=== PATIENT | female | born 1955 | race Caucasian/White ===

== ENCOUNTER 2017-12-17 11:31 | Emergency (ER) | payer MEDICARE ==
--- NOTE | 2017-12-17 14:14 | ULT ---
LEFT LOWER EXTREMITY VENOUS DOPPLER WITH SPECTRAL ANALYSIS AND COLOR FLOW EVALUATION: Date: 12-17-17 History: Left lower extremity redness and pain. Symptoms have been present for one month. FINDINGS: Grayscale, color flow, doppler evaluation and spectral analysis of the left lower extremity venous st ructures is performed with 2D imaging. The left lower extremity common femoral, superficial femoral, popliteal, posterior tibial, most proximal greater saphenous and profunda femoral veins are imaged. There is normal lumen compressibility, flow, and augmentation in the visualized deep venous structure s of the left lower extremity. There is an enlarged left inguinal lymph node which measures 3.1 cm x 0.8 cm x 2.2 cm. IMPRESSION: 1. No evidence of a DVT involving the visualized deep venous structures left lower extremity. 2. Minimal subcutaneous edema at the level of the distal left lower extremity. 3. Nonspecific enlarged left inguinal lymph node. This could be reactive in origin. POS: [facility]
== END 2017-12-17 14:43 | disposition home or self-care (01) ==
LOC: ERS 11:31
DX: I73.9 Peripheral vascular disease, unspecified (principal); G43.909 Migraine, unspecified, not intractable, without status migrainosus; I25.10 Atherosclerotic heart disease of native coronary artery without angina pectoris; E11.9 Type 2 diabetes mellitus without complications; Z87.891 Personal history of nicotine dependence; Z79.899 Other long term (current) drug therapy; Z79.4 Long term (current) use of insulin

== ENCOUNTER 2017-12-29 08:22 | Outpatient (CLI) | payer MEDICARE ==
[2017-12-29] MEDS ORDERED: Iopamidol 370 76% 100 ML VIAL ONE (12:21)
--- NOTE | 2017-12-29 13:48 | CT ---
CTA ABDOMEN WITH IV CONTRAST AND 3D POSTPROCESSING CTA PELVIS WITH IV CONTRAST AND 3D POSTPROCESSING CTA BILATERAL LOWER EXTREMITIES WITH RUNOFF AND 3D POSTPROCESSING: HISTORY: Coronary atherosclerosis, bilateral lower leg pain. FINDINGS: Atherosclerotic vascular calcifications are seen in the abdomen, pelvis, and bilateral lower extremit ies. No abdominal aortic aneurysm is seen. There is good flow in the celiac axis, SMA, and ERIN. No stenosis is seen at the origins of the SMA and the celiac axis. There is mild stenosis of the origi ns of the renal arteries on either side. There is severe stenosis in the left internal iliac and moderate stenosis in the right internal iliac arteries. There is good flow in the common and external iliac arteries. Mild stenosis is seen at t he origins of the superficial femoral arteries on either side. There is occlusion of the right dista l superficial femoral artery in the proximal popliteal artery with reconstitution of flow in the mid- distal right popliteal artery. There is good flow in the deep femoral arteries on either side. Ther e is high-grade short segmental stenosis in the left distal superficial femoral artery and severe mariaelena nosis in the left proximal popliteal artery. There is absence of flow in the right posterior vertebral artery. There is severe atherosclerotic di sease of the right anterior tibial artery with some flow noted in the distal portion close to the ank le. The right peroneal artery appears patent to the ankle. The left peroneal artery is occluded. Flow is demonstrated in the left posterior tibial and anterior tibial arteries. The flow in the anterior tibial and posterior tibial arteries stops in the distal leg above the level of the ankle. There are mild dependent changes in the lung bases. No calcified gallstones are seen. No free air, free fluid, or lymphadenopathy is seen in the abdomen or pelvis. There are enlarged inguinal lymph n odes measuring up to 2.5 cm on the left and 1.7 cm on the right. There are postop changes of hystere ctomy and lower back surgery. There are small cysts in the left kidney. IMPRESSION: Extensive atherosclerotic arterial vascular disease with occlusion in the distal right superior mesen teric artery and proximal popliteal artery and long segment occlusion of the right posterior tibial a nd left peroneal arteries. POS: [facility]
== END 2017-12-29 08:23 | disposition home or self-care (01) ==
LOC: CT 08:22
PROVIDERS: ATTEND Thoracic Surgery (Cardiothoracic Vascular Surgery)
DX: I73.9 Peripheral vascular disease, unspecified (principal); I25.10 Atherosclerotic heart disease of native coronary artery without angina pectoris; I70.201 Unspecified atherosclerosis of native arteries of extremities, right leg; K55.1 Chronic vascular disorders of intestine
CPT/HCPCS: 75635; 82565

== ENCOUNTER 2018-01-12 06:14 | Day surgery (SDC) | payer MEDICARE, MEDICAID ==
[2018-01-09 11:23] VITALS: BMI 29.4
[2018-01-12] MEDS ORDERED: Lidocaine 1% (PF) 30 ML VIAL ONE (06:41)
[2018-01-12 06:49] LABS: #Basophils 0.1 thou/uL (0.0-0.2); #Eosinphils 0.6 thou/uL (0.0-0.7); #Lymphocytes 1.8 thou/uL (1.20-3.40); #Monocytes 0.6 thou/uL (0.11-0.59); #Neutrophils 4.5 thou/uL (1.40-6.50); %Basophils 0.8 % (0.0-1.0); %Eosinophils 7.8 % (0.0-10.0); %Lymphocytes 24.5 % (21.0-51.0); %Monocytes 7.7 % (0.0-10.0); %Neutrophils 59.3 % (42.0-75.0); Hemoglobin 10.7 g/dL (12.0-16.0); Mean Corpuscular HGB CONC 32.2 g/dL (32.0-36.0); Mean Corpuscular Volume 86.7 fL (78.0-98.0); Mean Platelet Volume 6.8 fL (7.4-10.4); Platelet Count 357 thou/uL (130-400); RBC Distribution Width 12.4 % (11.5-14.5); Red Blood Cell (RBC) Count 3.81 mill/uL (4.20-5.40); White Blood Cell (WBC) Count 7.5 thou/uL (4.8-10.8)
[2018-01-12 07:08] LABS: Anion Gap 12 mmol/L (10-20); BUN (Urea Nitrogen) 9 mg/dL (9.8-20.1); Calc. Creatinine Clearance 93 mL/min (70-130); Calcium 9.6 mg/dL (7.8-10.44); Carbon Dioxide 26 mmol/L (23-31); Chloride 107 mmol/L (98-107); Estimated GFR-MDRD 69; Glucose 78 mg/dL (80-115); Potassium 3.7 mmol/L (3.5-5.1); Sodium 141 mmol/L (136-145)
[2018-01-12] MEDS ORDERED: Fentanyl 100 MCG/2 ML VIAL ONE (07:22)
[2018-01-12] MEDS ORDERED: Midazolam HCl 2 mg/2 ml Vial ONE (07:22)
--- NOTE | 2018-01-12 08:41 | OP ---
DATE OF PROCEDURE: 01/12/2018 PREOPERATIVE DIAGNOSES: Peripheral vascular disease. POSTOPERATIVE DIAGNOSIS: Peripheral vascular disease. PROCEDURES: 1. Ultrasound guided right common femoral artery access. 2. Abdominal aortogram. 3. Right external iliac artery angiogram. 4. Left external iliac artery, common femoral, superficial femoral, popliteal artery angiograms with left leg runoff. SURGEON: James Jaramillo M.D. ANESTHESIA: 1% lidocaine for local, 1 mg Versed//25 mcg fentanyl IV sedation which just made her more talkative. TOTAL CONTRAST: 23 mL. TOTAL FLUORO TIME: 4.2 minutes. FINDINGS: The aortoiliac and common femoral systems were patent bilaterally. On the right superficial femoral artery was patent to its distal aspect where it is occluded with a tapered endpoint. The popliteal artery reconstitutes after approximately 5 cm with runoff into the foot. On the left common femoral, profunda femoris, superficial femoral, and popliteal arteries were all widely patent. Anterior tibial artery is widely patent down to the ankle. There is a stenosis of the tibioperoneal trunk with a patent posterior tibial artery which plays out at the mid calf. Peroneal artery is occluded. PROCEDURE Using US guidance, the right groin was anesthetized and access obtained to the common femoral artery. A 5 fr sheath was placed. Contra catheter was placed into the abdominal aorta. Hand injected aortotram was performed. Contra was guided over the aortic bifurcation into the left external iliac. Hand injedted angiogram was performed chasing contrast from groin to foot using digitgal angiography. The catheter was then guided into the SFA, and Popliteal arteries where hand injected angios were perfomed illuminating the tibial system and popliteal respectively. Catheter was removed. Hand injection was performed throught the sheath and contrast chased from groin to foot on the right. Proglide was deployed with good hemostasis ASSESSMENT AND PLAN: Non-clinically significant left leg peripheral vascular disease. The right leg has an occluded superficial femoral artery/popliteal artery with reconstitution and runoff via tibials. This is potentially amenable to percutaneous management at a separate setting. [facility]
[2018-01-12] MEDS ORDERED: Iopamidol 370 76% 50 ML VIAL FS ONE (10:32)
== END 2018-01-12 10:42 | disposition home or self-care (01) ==
LOC: CCL 06:14
PROVIDERS: ATTEND Thoracic Surgery (Cardiothoracic Vascular Surgery)
PROC: B41D1ZZ Fluoroscopy of Aorta and Bilateral Lower Extremity Arteries using Low Osmolar Contrast (ICD-10-PCS; principal; 2018-01-12)
DX: E11.51 Type 2 diabetes mellitus with diabetic peripheral angiopathy without gangrene (principal); I70.201 Unspecified atherosclerosis of native arteries of extremities, right leg; M79.604 Pain in right leg; K21.9 Gastro-esophageal reflux disease without esophagitis; F32.9 Major depressive disorder, single episode, unspecified; I87.2 Venous insufficiency (chronic) (peripheral); E78.2 Mixed hyperlipidemia; I10 Essential (primary) hypertension; Z88.0 Allergy status to penicillin; Z88.1 Allergy status to other antibiotic agents; Z88.2 Allergy status to sulfonamides; Z88.5 Allergy status to narcotic agent; Z88.8 Allergy status to other drugs, medicaments and biological substances; Z91.040 Latex allergy status; Z95.1 Presence of aortocoronary bypass graft; Z79.02 Long term (current) use of antithrombotics/antiplatelets; Z79.4 Long term (current) use of insulin; Z79.899 Other long term (current) drug therapy
CPT/HCPCS: 36246; 36247; 75630; 76942; 80048; 85025; C1760; C1769 ×3; C1887; 36415; 99152; J1644; J2001; J2250; J3010

== ENCOUNTER 2018-01-27 07:54 | Day surgery (SDC) | payer MEDICARE, MEDICAID ==
[2018-01-26 18:07] VITALS: BMI 29.7
[2018-01-27] MEDS ORDERED: Lidocaine 1% (PF) 30 ML VIAL ONE (09:34)
[2018-01-27] MEDS ORDERED: Fentanyl 100 MCG/2 ML VIAL ONE (09:36)
[2018-01-27] MEDS ORDERED: Midazolam HCl 2 mg/2 ml Vial ONE (09:36)
[2018-01-27] MEDS ORDERED: Heparin 10,000 UNITS/1 ML VIAL ONE (10:30)
[2018-01-27] MEDS ORDERED: Iopamidol 370 76% 50 ML VIAL FS ONE (10:40)
[2018-01-27] MEDS ORDERED: Ondansetron HCl/PF 4 MG/2 ML Vial ONE (11:04)
[2018-01-27] MEDS ORDERED: Ketorolac Tromethamine 30 MG/ML VIAL ONE (11:36)
--- NOTE | 2018-01-27 12:06 | OP ---
DATE OF PROCEDURE: 01/27/2018 PREOPERATIVE DIAGNOSIS: Peripheral vascular disease. POSTOPERATIVE DIAGNOSIS: Peripheral vascular disease. PROCEDURES: 1. Ultrasound guided left common femoral artery access. 2. Right external iliac artery angiogram. 3. Right common femoral artery angiogram. 4. Right superficial femoral artery angiogram. 5. Right popliteal artery angiogram. 6. Right distal superficial femoral artery LEAD MECH[employer]IC with a 5 x 100 Lutonix balloon taken to 6 mmHg and he ld for 3 minutes. 7. ProGlide closure. SURGEON: James Jaramillo M.D. ANESTHESIA: 1 mg Versed/50 mcg fentanyl for sedation. TOTAL CONTRAST: 60 mL. TOTAL FLUOROSCOPY TIME: 12.1 minutes. PROCEDURE IN DETAIL: After consent was obtained, the patient was brought to landscape and yardwork laborer, placed in supi ne position on the landscape and yardwork laborer table. Appropriate monitoring was placed. IV sedation was given. Left groin was anesthetized using ultrasound guidance with 1% lidocaine. Percutaneous access to the left common femoral artery was obtained using a micropuncture set. The micropuncture sheath was exchanged for a 5-Dominican sheath over a UltiZenson guidewire. Contra catheter was then used to cross the aortic b ifurcation. Contra catheter was positioned in the external iliac artery. Digital angiography was us ed to dwight contrast from the groin down towards the knee. The occluded superficial femoral artery w as noted. The patient was given 5000 units of heparin. A Magic Torque guidewire was then passed in the superficial femoral artery. A 5-Dominican sheath was ex changed for a 5-Dominican destination sheath which was positioned in the right common femoral artery. A n angled glide catheter and angled Glidewire were used to access the area of occlusion. The Glidewir e was able to cross the occluded area into the distal popliteal artery. I could not get the glide ca theter to dwight the Glidewire. A Quick-Cross catheter also would not dwight the Glidewire. A 3 x 100 [place] balloon was then used to angioplasty the proximal cap. Once this was done, the balloon was removed and a Quick-Cross catheter passed down over the wire into the popliteal artery. Guidewire wa s removed and hand injected arteriogram performed confirming intraluminal location with the tip of th e catheter in the popliteal artery. Magic Torque guidewire was then placed down into the peroneal ar enrique. A Quick-Cross catheter was removed. A 5 x 100 Lutonix drug-eluting balloon was selected and p ositioned across the full length of the area of occlusion. Balloon was inflated to 6 mmHg for 3 emily nancy. Balloon was then deflated and removed. Hand injected arteriogram performed through the sheath showing an excellent result with great straight line flow through the occlusion of the popliteal neeta ry. A sheath was brought back over the aortic bifurcation over a Magic Torque guidewire. Magic Torq ue guidewire was removed. A UltiZenson guidewire placed. Sheath was removed and ProGlide deployed in t he left groin with great hemostasis. The patient was transferred to the recovery area and will be ke pt for 2 hours and discharged to home.
== END 2018-01-27 14:00 | disposition home or self-care (01) ==
LOC: CCL 07:54
PROVIDERS: ATTEND Thoracic Surgery (Cardiothoracic Vascular Surgery)
PROC: 047M3Z1 Dilation of Right Popliteal Artery using Drug-Coated Balloon, Percutaneous Approach (ICD-10-PCS; principal; 2018-01-27)
DX: E11.51 Type 2 diabetes mellitus with diabetic peripheral angiopathy without gangrene (principal); I70.201 Unspecified atherosclerosis of native arteries of extremities, right leg; K21.9 Gastro-esophageal reflux disease without esophagitis; F32.9 Major depressive disorder, single episode, unspecified; I25.10 Atherosclerotic heart disease of native coronary artery without angina pectoris; E78.2 Mixed hyperlipidemia; I10 Essential (primary) hypertension; L40.9 Psoriasis, unspecified; Z79.02 Long term (current) use of antithrombotics/antiplatelets; Z79.4 Long term (current) use of insulin; Z79.82 Long term (current) use of aspirin; Z79.899 Other long term (current) drug therapy; Z91.19 Patient's noncompliance with other medical treatment and regimen; Z88.0 Allergy status to penicillin; Z88.2 Allergy status to sulfonamides; Z88.5 Allergy status to narcotic agent; Z88.8 Allergy status to other drugs, medicaments and biological substances; Z91.048 Other nonmedicinal substance allergy status; Z95.1 Presence of aortocoronary bypass graft; Z98.1 Arthrodesis status; Z98.890 Other specified postprocedural states
CPT/HCPCS: 37224; 76942; 82962; 85347; C1725; C1760; C1769 ×2; C1887; 36416; 99152; 99153; J1644; J1885; J2001; J2250; J2405; J3010

== ENCOUNTER 2018-03-03 17:17 | Emergency (ER) | payer MEDICARE, MEDICAID ==
[2018-03-03 18:24] LABS: #Basophils 0.1 thou/uL (0.0-0.2); #Eosinphils 0.1 thou/uL (0.0-0.7); #Lymphocytes 1.8 thou/uL (1.20-3.40); #Monocytes 0.6 thou/uL (0.11-0.59); #Neutrophils 7.3 thou/uL (1.40-6.50); %Eosinophils 1.3 % (0.0-10.0); %Lymphocytes 18.2 % (21.0-51.0); %Monocytes 5.7 % (0.0-10.0); %Neutrophils 73.8 % (42.0-75.0); Hemoglobin 10.9 g/dL (12.0-16.0); Mean Corpuscular Hemoglobin 28.1 pg (27.0-31.0); Mean Corpuscular Volume 84.9 fL (78.0-98.0); Mean Platelet Volume 6.7 fL (7.4-10.4); Platelet Count 389 thou/uL (130-400); RBC Distribution Width 13.1 % (11.5-14.5); White Blood Cell (WBC) Count 9.9 thou/uL (4.8-10.8)
[2018-03-03 18:33] LABS: PTT 30.5 SEC (22.9-36.1); Prothrombin Time 12.7 SEC (12.0-14.7)
[2018-03-03 18:46] LABS: ALT (SGPT) 37 U/L (8-55); AST (SGOT) 32 U/L (5-34); Alkaline Phosphatase 87 U/L (40-150); Anion Gap 13 mmol/L (10-20); BUN (Urea Nitrogen) 6 mg/dL (9.8-20.1); Bilirubin, Total 0.3 mg/dL (0.2-1.2); Calc. Creatinine Clearance 0 mL/min (70-130); Calcium 9.4 mg/dL (7.8-10.44); Carbon Dioxide 25 mmol/L (23-31); Chloride 108 mmol/L (98-107); Estimated GFR-MDRD 70; Globulin 3.2 g/dL (2.4-3.5); Glucose 120 mg/dL (80-115); Potassium 3.5 mmol/L (3.5-5.1); Protein, Total 7.2 g/dL (6.0-8.3); Sodium 142 mmol/L (136-145)
[2018-03-03] MEDS ORDERED: Morphine 4 MG/ML VIAL ONE (20:19)
[2018-03-03] MEDS ORDERED: Ondansetron PF 4 MG/2 ML Vial ONE (20:31)
--- NOTE | 2018-03-03 20:53 | ULT ---
RIGHT LOWER EXTREMITY VENOUS DUPLEX EXAM: 03/03/18 HISTORY: Right lower extremity pain and edema. Real time color doppler evaluation of the right lower extremity was performed from the groin to calf. This includes evaluation of common femoral, superficial and profunda femoral, saphenous, popliteal a nd posterior tibial vein. This shows a patent deep venous system. There is normal compressibility an d augmentation. There is no evidence of DVT. Moderate soft tissue edema changes are noted. Arterial c alcifications are also incidentally seen. IMPRESSION: No evidence of DVT of the right lower extremity. POS: [facility]
== END 2018-03-03 20:36 | disposition home or self-care (01) ==
LOC: ERS 17:17
DX: M79.662 Pain in left lower leg (principal); G43.909 Migraine, unspecified, not intractable, without status migrainosus; I25.10 Atherosclerotic heart disease of native coronary artery without angina pectoris; E11.9 Type 2 diabetes mellitus without complications; F17.290 Nicotine dependence, other tobacco product, uncomplicated; Z79.899 Other long term (current) drug therapy; Z79.4 Long term (current) use of insulin
CPT/HCPCS: 36415; 80053; 85025; 85610; 85730; 86850; 86900; 86901; 96374; 96375; J2270; J2405

== ENCOUNTER 2018-04-20 16:07 | Emergency (ER) | payer MEDICARE, MEDICAID ==
[2018-04-20] MEDS ORDERED: Sodium Chloride For Inhalation 0.9% 3 ML NEB ONE (16:40)
--- NOTE | 2018-04-20 17:02 | RAD ---
CHEST 2 VIEWS: Date: 04/20/18 HISTORY: Cough and fever. COMPARISON: 07/25/11. FINDINGS: Cardiac silhouette and pulmonary vasculature are unremarkable. Mediastinum is midline with postoperat ruthann changes. There is no confluent air space consolidation, pneumothorax, or pleural fluid evident. IMPRESSION: No active cardiopulmonary abnormalities are demonstrated. POS: [facility]
== END 2018-04-20 17:37 | disposition home or self-care (01) ==
LOC: SCSER 16:07
DX: J20.9 Acute bronchitis, unspecified (principal); J06.9 Acute upper respiratory infection, unspecified; G43.909 Migraine, unspecified, not intractable, without status migrainosus; I25.10 Atherosclerotic heart disease of native coronary artery without angina pectoris; E11.9 Type 2 diabetes mellitus without complications; F17.290 Nicotine dependence, other tobacco product, uncomplicated
CPT/HCPCS: 71046; 87804; 94640; J7620

== ENCOUNTER 2018-04-28 20:25 | Emergency (ER) | payer MEDICARE, MEDICAID | END 2018-04-28 21:40 | disposition home or self-care (01) | LOC: SCSER 20:25 | DX: S61.211A Laceration without foreign body of left index finger without damage to nail, initial encounter (principal); I25.10 Atherosclerotic heart disease of native coronary artery without angina pectoris; G43.909 Migraine, unspecified, not intractable, without status migrainosus; F17.290 Nicotine dependence, other tobacco product, uncomplicated; W26.8XXA Contact with other sharp object(s), not elsewhere classified, initial encounter | CPT/HCPCS: 12001 ==

== ENCOUNTER 2018-05-02 11:15 | Emergency (ER) | payer MEDICARE, MEDICAID ==
[2018-05-02] MEDS ORDERED: Bacitracin Zinc 1 Packet ONE (11:31)
== END 2018-05-02 11:35 | disposition home or self-care (01) ==
LOC: SCSER 11:15
DX: T81.33XA Disruption of traumatic injury wound repair, initial encounter (principal); G43.909 Migraine, unspecified, not intractable, without status migrainosus; I25.10 Atherosclerotic heart disease of native coronary artery without angina pectoris; E11.9 Type 2 diabetes mellitus without complications; F17.290 Nicotine dependence, other tobacco product, uncomplicated
CPT/HCPCS: 99282

== ENCOUNTER 2018-06-03 10:05 | Outpatient (CLI) | payer MEDICARE, MEDICAID ==
[~2018-06-03 10:05] MED LIST: Gadobenate Dimeglumine 529 MG/1 ML (20ML VIAL) ONE
--- NOTE | 2018-06-03 11:27 | RAD ---
LUMBAR SPINE SERIES FOUR VIEWS INCLUDING FLEXION AND EXTENSION: FINDINGS: The vertebral bodies maintain normal height. Disc implants are seen at the L4-5 and L5-S1 levels with posterior lateral fusion and laminectomy change. There is no abnormal motion seen in either the flex ion or extension views. Disc narrowing is seen at L1-2 and L3-4. Vascular calcifications are present. IMPRESSION: Post-operative changes of the spine. POS: [facility]
--- NOTE | 2018-06-03 13:03 | MRI ---
MRI LUMBAR SPINE WITH AND WITHOUT CONTRAST: HISTORY: Back pain x1 year, recent worsening. Previous lumbar surgery. COMPARISON: None. TECHNIQUE: MRI lumbar spine is performed with and without intravenous Gadolinium administration. Multisequentia l, multiplanar imaging is performed. FINDINGS: There is appropriate T1 marrow signal intensity of the lumbar vertebrae. Lumbar spine vertebral body height is maintained. There is no fracture. There is posterior fusion bone graft material from L4 through S1. There are disk prostheses at L4-L5 and at L5-S1. Appropriate signal intensity of the visualized solid organs. Appropriate signal intensity of the par aspinal muscles. Incidental cyst in the left kidney. On the post contrast images, there is no abnormal enhancement with regard to the vertebral bodies. T here is no abnormal enhancement with regard to the cauda equina and conus medullaris. No abnormal en hancement within the thecal sac. The conus medullaris terminates at the T12-L1 disk space level. T12-L1: Adequate disk hydration. No significant central canal stenosis. The foramina are patent. L1-L2: Adequate disk hydration. No significant central canal stenosis. The foramina are patent. L2-L3: Adequate disk hydration. No significant central canal stenosis. The foramina are patent. L3-L4: Desiccation with mild loss of disk space height. Generalized disk bulge, ligamentum flavum t hickening, and facet hypertrophy result in moderate central canal stenosis. The right neural foramen is patent. Mild left foraminal narrowing. L4-L5: Disk prosthesis. Posterior decompression and laminectomy defect. No significant central can al stenosis or neural foraminal narrowing. L5-S1: Laminectomy defect. Posterior bone graft material. Disk prosthesis. No significant central canal stenosis. The neural foramina are patent bilaterally. IMPRESSION: Post surgical changes, as described above. Moderate central canal stenosis at L3-L4. POS: [facility]
== END 2018-06-03 10:06 | disposition home or self-care (01) ==
LOC: SCSMRI 10:05
PROVIDERS: ATTEND Neurological Surgery
DX: M48.062 Spinal stenosis, lumbar region with neurogenic claudication (principal); Z98.890 Other specified postprocedural states
CPT/HCPCS: 72120; 72158; 82565; A9577

== ENCOUNTER 2018-06-20 11:24 | Emergency (ER) | payer MEDICARE ==
--- NOTE | 2018-06-20 12:32 | CT ---
BRAIN CT WITHOUT IV CONTRAST: Date: 06/20/18 HISTORY: Posterior neck pain following an injury from trauma. COMPARISON: 04/09/12. FINDINGS: No focal mass or midline shift. No intra or extra-axial hemorrhage. Sinuses and mastoids are clear. IMPRESSION: No mass or bleed, or other acute process. POS: [facility]
--- NOTE | 2018-06-20 12:36 | CT ---
CT CERVICAL SPINE WITHOUT CONTRAST: Date: 06/20/18 Multiple axial tomograms obtained through the cervical spine with multiplanar reconstruction. INDICATION: Neck pain. Trauma. FINDINGS: Cervical vertebra maintain normal height and alignment. There are mild degenerative changes noted. Th e disc spaces are preserved with mild loss of disc space noted at C6-7. Anterior osteophytes are note d at C4-5, C5-6, and C6-7. Posterior spondylosis is prominent at C6-7. There is no evidence of acute fracture. Uncinate hypertrophy on the right produces right foraminal en croachment at C4-5. Uncinate hypertrophy also results in right foraminal stenosis at C6-7. IMPRESSION: No acute fracture. Degenerative changes as described. POS: [facility]
== END 2018-06-20 12:45 | disposition home or self-care (01) ==
LOC: SCSER 11:24
DX: M54.2 Cervicalgia (principal); G43.909 Migraine, unspecified, not intractable, without status migrainosus; I25.10 Atherosclerotic heart disease of native coronary artery without angina pectoris; E11.9 Type 2 diabetes mellitus without complications; F17.290 Nicotine dependence, other tobacco product, uncomplicated
CPT/HCPCS: 70450; 72125

== ENCOUNTER 2018-08-05 15:24 | Outpatient (CLI) | payer MEDICARE ==
--- NOTE | 2018-08-05 15:50 | RAD ---
Exam: Lumbar spine 2 views: HISTORY: Lumbar stenosis with out neurogenic claudication prior surgery, fall, right leg numbness COMPARISON: 06/03/2018 FINDINGS: Recent laminectomy changes at L2-L3 with right sided pedicle screw placement. No change in alignment from prior study. Postsurgical changes at L4-L5 and L5-S1. IMPRESSION: Recent postsurgical changes at L2-L3.
== END 2018-08-05 15:25 | disposition home or self-care (01) ==
LOC: TBSIIMAG 15:24
PROVIDERS: ATTEND Neurological Surgery
DX: M48.061 Spinal stenosis, lumbar region without neurogenic claudication (principal); Z98.890 Other specified postprocedural states
CPT/HCPCS: 72100

== ENCOUNTER 2018-08-11 15:40 | Outpatient (CLI) | payer MEDICARE ==
--- NOTE | 2018-08-11 15:58 | RAD ---
XR Lumbar Spine 2 Or 3 View HISTORY: Follow-up back surgery COMPARISON: 08/05/2018 study FINDINGS: Extensive postoperative changes of the spine are again noted. Laminectomy changes extending from L3 to S1. Right unilateral pedicle screws at L3-4 posterior lateral fusion changes again noted.. Disc implants at the L4-5 and L5-S1 levels. IMPRESSION: Stable postop change.
== END 2018-08-11 15:41 | disposition home or self-care (01) ==
LOC: TBSIIMAG 15:40
PROVIDERS: ATTEND Neurological Surgery
DX: M48.061 Spinal stenosis, lumbar region without neurogenic claudication (principal); Z98.890 Other specified postprocedural states
CPT/HCPCS: 72100

== ENCOUNTER 2018-09-22 15:28 | Outpatient (CLI) | payer MEDICARE ==
--- NOTE | 2018-09-22 15:45 | RAD ---
Exam: 2 views lumbar spine HISTORY: Previous lumbar surgery. COMPARISON: 08/11/2018 FINDINGS: Redemonstration of a unilateral right-sided transpedicular screw at L3 and L4. Disc implant at L4-L5 and L5-S1. Stable laminectomy defect at L3, L4, L5 and S1. Bone graft material is noted. Stable loss of disc space height and osteophyte formation at L3-L4. Stable osteophyte formation at L1 -L2. IMPRESSION: Uncomplicated lumbar fusion.
== END 2018-09-22 15:29 | disposition home or self-care (01) ==
LOC: TBSIIMAG 15:28
PROVIDERS: ATTEND Neurological Surgery
DX: M51.36 Other intervertebral disc degeneration, lumbar region (principal); Z98.1 Arthrodesis status
CPT/HCPCS: 72100

== ENCOUNTER 2018-11-13 14:56 | Outpatient (CLI) | payer MEDICARE ==
--- NOTE | 2018-11-13 17:06 | RAD ---
2 VIEWS LUMBOSACRAL SPINE: Date: 11/13/18 COMPARISON: 09/22/18. HISTORY: Low back pain which extends down the right leg. FINDINGS: 2 view of the lumbosacral spine show the patient to be status post posterior fusion of L3 through S1. No perihardware lucency is seen. Laminectomies have also been performed at L4 and L5. The vertebral bodies demonstrate normal alignment without subluxation. The intervertebral disc is narrowed at L1-2 with surrounding moderate osteophytes. No change has occurred compared to the prior exam. IMPRESSION: Stable postsurgical and degenerative changes of the lumbar spine. POS: [facility]
== END 2018-11-13 14:57 | disposition home or self-care (01) ==
LOC: TBSIIMAG 14:56
PROVIDERS: ATTEND Neurological Surgery
DX: M48.062 Spinal stenosis, lumbar region with neurogenic claudication (principal); M47.816 Spondylosis without myelopathy or radiculopathy, lumbar region; Z98.890 Other specified postprocedural states
CPT/HCPCS: 72100

== ENCOUNTER 2018-12-04 17:39 | Emergency (ER) | payer MEDICARE ==
[2018-12-04 18:36] LABS: Bilirubin Negative (Negative); Blood, Urine Negative (Negative); Glucose, Urine (Dipstick) 250 mg/dL (Negative); Leukocyte Moderate (Negative); Nitrite Negative (Negative); Protein, Urine (Dipstick) Negative (Neg-Trace); Urobilinogen 0.2 mg/dL (Less than 2)
[2018-12-04 18:37] LABS: Clarity Slightly Cloudy (Clear)
[2018-12-04 18:40] LABS: Bacteria/HPF None Seen HPF (None Seen); RBC/HPF 0-3 HPF (0-3); Renal Epithelial 0-3 HPF (None Seen)
[2018-12-04 18:41] LABS: #Basophils 0.1 thou/uL (0.0-0.2); #Eosinphils 0.4 thou/uL (0.0-0.7); #Lymphocytes 2.2 thou/uL (1.20-3.40); #Monocytes 0.5 thou/uL (0.11-0.59); #Neutrophils 5.9 thou/uL (1.40-6.50); %Basophils 1.5 % (0.0-1.0); %Eosinophils 4.2 % (0.0-10.0); %Lymphocytes 23.9 % (21.0-51.0); %Neutrophils 65.3 % (42.0-75.0); Hemoglobin 13.1 g/dL (12.0-16.0); Mean Corpuscular HGB CONC 34.3 g/dL (32.0-36.0); Mean Corpuscular Hemoglobin 28.7 pg (27.0-31.0); Mean Corpuscular Volume 83.7 fL (78.0-98.0); Mean Platelet Volume 6.6 fL (7.4-10.4); Platelet Count 313 thou/uL (130-400); RBC Distribution Width 13.5 % (11.5-14.5); Red Blood Cell (RBC) Count 4.57 mill/uL (4.20-5.40)
[2018-12-04 18:52] LABS: ALT (SGPT) 35 U/L (8-55); AST (SGOT) 23 U/L (5-34); Albumin 4.2 g/dL (3.4-4.8); Alkaline Phosphatase 107 U/L (40-150); Anion Gap 17 mmol/L (10-20); BUN (Urea Nitrogen) 17 mg/dL (9.8-20.1); Bilirubin, Total 0.3 mg/dL (0.2-1.2); Calc. Creatinine Clearance 0 mL/min (70-130); Calcium 9.7 mg/dL (7.8-10.44); Carbon Dioxide 25 mmol/L (23-31); Chloride 100 mmol/L (98-107); Estimated GFR-MDRD 39; Glucose 375 mg/dL (80-115); Potassium 3.6 mmol/L (3.5-5.1); Protein, Total 7.2 g/dL (6.0-8.3); Sodium 138 mmol/L (136-145)
--- NOTE | 2018-12-04 19:32 | CT ---
BRAIN CT WITHOUT IV CONTRAST: 12/04/18 HISTORY: Injury from a fall two weeks ago. COMPARISON: 06/20/18. FINDINGS: No focal mass or midline shift. No intra or extra-axial hemorrhage. There is a somewhat nodular appea ring area of minimal increased density in the left CP ankle which is somewhat more well defined than on the prior study. I cannot exclude the possibility of this representing a small mass such as a meni ngioma. This could well just be artifact. IMPRESSION: No mass, bleed or other significant acute intracranial process. 0.8 cm diameter focal area of slightl y nodular increased attenuation density in the left CP angle. This could be artifact although this co uld represent a small CP angle tumor such as meningioma. Consider nonemergent follow-up MRI with and without contrast. POS: [facility]
--- NOTE | 2018-12-04 19:48 | RAD ---
EXAM: CHEST ONE VIEW PORTABLE: 12/04/18 HISTORY: Injury from a fall. COMPARISON: 11/01/15. FINDINGS: Postop midline sternotomy. Heart size is normal. The lungs are clear. IMPRESSION: No significant acute intrathoracic disease. POS: [facility]
--- NOTE | 2018-12-04 19:51 | CT ---
EXAM: CERVICAL SPINE CT SCAN WITHOUT IV CONTRAST: 12/04/18 HISTORY: Injury from a fall. COMPARISON: 06/20/18. FINDINGS: Disc osteophytosis changes are noted at multiple levels most marked at C6-C7. There are some ossifica tion changes within the ligamentum flavum bilaterally at multiple levels. No evidence for acute fract ure or dislocation. IMPRESSION: Cervical spondylosis without acute fracture or dislocation. POS: [facility]
[2018-12-04] MEDS ORDERED: Acetaminophen 500 MG TAB ONE (20:40)
--- NOTE | 2018-12-04 21:04 | CT ---
CT LUMBAR SPINE WITH CORONAL AND SAGITTAL REFORMATIONS: 12/04/18 HISTORY: Fall. Left leg pain. FINDINGS/IMPRESSION: Postop changes are seen in the lower lumbar spine. There are right sided pedicle screws at L3 and L4 levels and intradiscal prosthesis at L4-5 and L5-S1 levels in good position and alignment. There are laminectomy changes at L3, L4 and L5 levels. No acute fracture or subluxation is seen. The metallic hardware is intact. POS: [facility]
== END 2018-12-04 20:50 | disposition home or self-care (01) ==
LOC: SCSER 17:39
DX: M79.605 Pain in left leg (principal); M54.5 Low back pain; G43.909 Migraine, unspecified, not intractable, without status migrainosus; I25.10 Atherosclerotic heart disease of native coronary artery without angina pectoris; E11.9 Type 2 diabetes mellitus without complications; F17.290 Nicotine dependence, other tobacco product, uncomplicated; Z79.899 Other long term (current) drug therapy; W19.XXXA Unspecified fall, initial encounter
CPT/HCPCS: 70450; 71045; 72125; 72131; 80053; 81003; 81015; 84484; 85025; 87077; 87086; 87186; 93005

== ENCOUNTER 2018-12-11 13:07 | Observation (INO) | payer MEDICARE ==
[~2018-12-11 13:07] MED LIST changes: -Gadobenate Dimeglumine 529 MG/1 ML (20ML VIAL) ONE; +ISOVUE-370 76%-LOCM 1 ML ONE
--- NOTE | 2018-12-11 13:26 | CT ---
CT BRAIN NONCONTRAST: DATE: 12/11/2018 HISTORY: 63-year-old female with acute stroke. Dr. Contreras verbally gave this level 1 stroke alert protocol negative brain CT report by telephone to Dr. Quinn at 1:24 PM on 12/11/2018 FINDINGS: There is no evidence of acute intra-axial or extra-axial hemorrhage. There is no midline shift or any other mass effect. There is no extra-axial fluid collection. There is no evidence of obstructive hydrocephalus. Calvarium is intact. IMPRESSION: No acute intracranial findings.
[2018-12-11 13:32] LABS: #Basophils 0.1 thou/uL (0.0-0.2); #Eosinphils 0.3 thou/uL (0.0-0.7); #Lymphocytes 3.2 thou/uL (1.20-3.40); #Monocytes 0.7 thou/uL (0.11-0.59); %Basophils 1.1 % (0.0-1.0); %Eosinophils 3.6 % (0.0-10.0); %Lymphocytes 38.8 % (21.0-51.0); %Neutrophils 48.5 % (42.0-75.0); Hemoglobin 12.5 g/dL (12.0-16.0); Mean Corpuscular HGB CONC 32.2 g/dL (32.0-36.0); Mean Corpuscular Hemoglobin 28.3 pg (27.0-31.0); Mean Platelet Volume 6.8 fL (7.4-10.4); Platelet Count 358 thou/uL (130-400); RBC Distribution Width 13.5 % (11.5-14.5); Red Blood Cell (RBC) Count 4.42 mill/uL (4.20-5.40); White Blood Cell (WBC) Count 8.2 thou/uL (4.8-10.8)
[2018-12-11] MEDS ORDERED: Dextrose 50% Abboject 50 ML SYRINGE ONE (13:37)
[2018-12-11 13:38] LABS: PTT 28.3 SEC (22.9-36.1); Prothrombin Time 13.1 SEC (12.0-14.7)
--- NOTE | 2018-12-11 13:49 | CT ---
EXAM: CT angiogram abdomen and pelvis with IV contrast and 3-D MIPS reconstructions PROVIDED CLINICAL HISTORY: Chest pain COMPARISON: None FINDINGS: There is no evidence for aortic dissection or aneurysm. Vascular calcification including coronary ted cium is demonstrated. Moderate stenosis involving proximal left subclavian artery. There is insufficient opacification of the pulmonary arterial system for comment regarding the presence or abs ence of pulmonary embolus. The lungs are free of significant opacity. The airway appears patent and of normal caliber. There is no pleural fluid or pneumothorax apparent. The solid abdominal organs are suboptimally evaluated in the arterial phase of contrast but demonstra te an unremarkable CT appearance for the phase of contrast in which the study was acquired. There is no bowel dilatation, inflammatory fat stranding, free fluid or free air apparent. Atelectatic vascular calcification is noted involving the abdominal aorta and its branches. There is no evidence for abdominal aortic aneurysm. Postoperative changes involving the lumbar spine are partially visualized. The osseous structures dem onstrate no concerning lytic or blastic lesions. IMPRESSION: No evidence for an acute process.
[2018-12-11 13:52] LABS: ALT (SGPT) 33 U/L (8-55); AST (SGOT) 24 U/L (5-34); Albumin 4.2 g/dL (3.4-4.8); Alkaline Phosphatase 81 U/L (40-150); Anion Gap 16 mmol/L (10-20); BUN (Urea Nitrogen) 21 mg/dL (9.8-20.1); Bilirubin, Total 0.3 mg/dL (0.2-1.2); Calc. Creatinine Clearance 0 mL/min (70-130); Calcium 9.6 mg/dL (7.8-10.44); Carbon Dioxide 23 mmol/L (23-31); Chloride 102 mmol/L (98-107); Estimated GFR-MDRD 31; Globulin 2.6 g/dL (2.4-3.5); Potassium 3.6 mmol/L (3.5-5.1); Protein, Total 6.8 g/dL (6.0-8.3); Sodium 137 mmol/L (136-145)
[2018-12-11 13:55] LABS: Glucose 59 mg/dL (80-115)
[2018-12-11] MEDS ORDERED: Acetaminophen 500 MG TAB ONE (14:06)
[2018-12-11] MEDS ORDERED: Aspirin Chewable 81 MG TAB ONE (14:06)
[2018-12-11 16:52] LABS: Troponin I Less than 0.010 ng/mL (< 0.028)
[2018-12-11] MEDS ORDERED: Dextrose 50% Abboject 50 ML SYRINGE SLOW IVP PRN (17:35)
[2018-12-11] MEDS ORDERED: HumaLOG 300 UNITS/3 ML VIAL SC PRN (17:35)
--- NOTE | 2018-12-11 17:59 | PDOC.HHP ---
Hospitalist HPI - History of Present Illness Left sided numbness History of Present Illness: Mrs. Su is a 63 year old woman presenting with sudden onset of left facial numbness with numbness in the bilateral legs and bilateral hands. This started at approximately 12:30PM and she quickly told her daughter. She states she felt "shaky all over" and family state she did not have speech disturbances however the patient feels her speech felt abnormally slow. Reports having a headache and blurred vision. She tried to eat something but her symptoms did not improve. She denies any chest pain today but has had pain in her chest before. She reports having difficulty with her breathing during this episode. Per ED notes she had significant visual field deficits with drift of LUE, LLE and slurred speech. Patient states she feels back to baseline at this present time except for residual numbness to the left side of her face. She has a history of CVA and has some gait disturbances at baseline associated with that. Reports multiple falls. Uses a cane to walk around her home. ED Course: She is s/p CT brain showing no acute intracranial abnormalities. Had a CT dissection done which was normal. EKG was normal, HR 64. No ST changes or T wave abnormalities. Aspirin 324 mg given and it appears she has had a low BP with systolic in low 100s-mid 90s. Her glucose was 59, therefore given an amp of D50W. Tylenol was given for her headache. Hospitalist ROS - Review of Systems Constitutional: reports: chills (with shaking when symptoms first started.). denies: fever, sweats, weakness, malaise, other Eyes: denies: pain, vision change, conjunctivae inflammation, eyelid inflammation, redness, other ENT: denies: ear pain, ear discharge, nose pain, nose discharge, nose congestion , mouth pain, mouth swelling, throat pain, throat swelling, other Respiratory: reports: cough (chronic, no longer smokes but does vape), shortness of breath (has resolved) Cardiovascular: denies: chest pain, palpitations, orthopnea, paroxysmal noc. dyspnea, edema, light headedness, other Gastrointestinal: denies: nausea, vomitting, abdominal pain, diarrhea, constipation, melena, hematochezia, other Genitourinary: denies: dysuria, frequency, incontinence, hematuria, retention, other Musculoskeletal: reports: back pain (chronic) Neurological: reports: numbness (Bilateral legs and hands, has resolved. 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 Left hip surgery due to fracture. - Family History Family History: reports: Other (migraines) - Social History Smoking Status: Former smoker (Currently Vapes) Alcohol: reports: None Drugs: reports: none Living Situation: With Family Activity level: uses cane/walker - Exam General Appearance: NAD Eye: PERRL, anicteric sclera Eye - other findings: EOM intact ENT: normocephalic atraumatic, no oropharyngeal lesions, moist mucosa Neck: supple, no lymphadenopathy Heart: RRR, no murmur, no gallops, no rubs Respiratory: CTAB, no wheezes, no rales, no ronchi, normal chest expansion Gastrointestinal: soft, non-tender, non-distended, no palpable masses, no guarding, no rigidity Extremities: no cyanosis, no clubbing, no edema Skin: normal turgor, no lesions, no rashes Neurological - other findings: Numbness to left side of face. Normal sensation in upper/lower extremities Musculoskeletal: normal tone, normal strength, no muscle wasting Psychiatric: normal affect, normal behavior, A&O x 3 Hospitalist Results - Labs Result Diagrams: 12/11/18 13:24 12/11/18 13:24 Lab results: WBC 8.2 thou/uL (4.8-10.8) 12/11/18 13:24 Hgb 12.5 g/dL (12.0-16.0) 12/11/18 13:24 Hct 38.9 % (36.0-47.0) 12/11/18 13:24 MCV 88.0 fL (78.0-98.0) 12/11/18 13:24 Plt Count 358 thou/uL (130-400) 12/11/18 13:24 Neutrophils % 48.5 % (42.0-75.0) 12/11/18 13:24 Sodium 137 mmol/L (136-145) 12/11/18 13:24 Potassium 3.6 mmol/L (3.5-5.1) 12/11/18 13:24 Chloride 102 mmol/L (98-107) 12/11/18 13:24 Carbon Dioxide 23 mmol/L (23-31) 12/11/18 13:24 BUN 21 mg/dL (9.8-20.1) H 12/11/18 13:24 Creatinine 1.69 mg/dL (0.6-1.1) H 12/11/18 13:24 Glucose 59 mg/dL (80-115) L* 12/11/18 13:24 Calcium 9.6 mg/dL (7.8-10.44) 12/11/18 13:24 Total Bilirubin 0.3 mg/dL (0.2-1.2) 12/11/18 13:24 AST 24 U/L (5-34) 12/11/18 13:24 ALT 33 U/L (8-55) 12/11/18 13:24 Alkaline Phosphatase 81 U/L (40-150) 12/11/18 13:24 Troponin I Less than 0.010 ng/mL (< 0.028) 12/11/18 16:19 Serum Total Protein 6.8 g/dL (6.0-8.3) 12/11/18 13:24 Albumin 4.2 g/dL (3.4-4.8) 12/11/18 13:24 - Radiology Interpretation CT scan - head Status: report reviewed by tx Hospitalist H&P A/P - Problem (1) Left sided numbness Code(s): R20.0 - ANESTHESIA OF SKIN Status: Acute Assessment and Plan: May have been due to hypoglycemic episode, glucose was still low on arrival though she tried to eat at home. Residual numbness involving the left side of her face, therefore will obtain further imaging with MRI. Carotid US and echo ordered as well. Lipid panel in am with morning labs. (2) Hypotension Status: Acute Assessment and Plan: Potentially due to dehydration, renal function altered, was normal 02/2018. We will give IV Fluids. Obtain orthostatic BPs. Monitor BP. Monitor renal function. No evidence of infection, normal HR. UA to assess for UTI. (3) Hypoglycemia Code(s): E16.2 - HYPOGLYCEMIA, UNSPECIFIED Status: Acute Assessment and Plan: Glucose low, treated with D50W x 1 amp. Monitor glucose. Hold diabetic meds and initiate insulin sliding scale only for now. Monitor glucose. (4) HTN (hypertension) Code(s): I10 - ESSENTIAL (PRIMARY) HYPERTENSION Status: Chronic Qualifiers: Hypertension type: essential hypertension Qualified Code(s): I10 - Essential (primary) hypertension Assessment and Plan: Hold BP meds for now. Monitor BP. - Plan Plan: Discussed with Dr. Vaughn who agrees with plan as above. Of note, patient states she wishes to be DNAR. Her surrogate decision maker is her . Will place consult to palliative care for discussion of advanced directives.
[2018-12-11 18:17] VITALS: BMI 30.2
--- NOTE | 2018-12-11 18:21 | RAD ---
EXAM: Chest 2 views: HISTORY: Shortness of breath and cough COMPARISON: 04/20/2018 FINDINGS: There is a normal-sized cardiomediastinal silhouette. The patient is status post sternotomy. There is no evidence of consolidation, mass, or pleural effusion. The bones are unremarkable. IMPRESSION: No evidence of acute cardiopulmonary disease
[2018-12-11] MEDS: Sodium Chloride 0.9% 1,000 ML IV SCH (19:14)
[2018-12-11] MEDS ORDERED: Acetaminophen 325 MG TAB PO PRN (19:27)
[2018-12-11] MEDS ORDERED: Ondansetron PF 4 MG/2 ML Vial IVP PRN (19:27)
[2018-12-11] MEDS ORDERED: Ondansetron ODT 4 MG TAB PO PRN (19:27)
[2018-12-11] MEDS ORDERED: Acetaminophen 650 MG Suppository PR PRN (19:27)
[2018-12-11 20:13] LABS: Troponin I Less than 0.010 ng/mL (< 0.028)
[2018-12-11] MEDS: Pramipexole Di-HCl 0.25 MG TAB PO SCH (21:34)
[2018-12-11] MEDS: Atorvastatin Calcium 40 MG TAB PO SCH (21:34)
[2018-12-11 22:32] LABS: Bacteria/HPF None Seen HPF (None Seen); Bilirubin Negative (Negative); Blood, Urine Negative (Negative); Clarity Clear (Clear); Glucose, Urine (Dipstick) 30 mg/dL (Negative); Leukocyte Negative Leu/uL (Negative); Nitrite Negative (Negative); Protein, Urine (Dipstick) Negative (Neg-Trace); RBC/HPF 0-3 HPF (0-3); Squamous Epithelial 0-3 HPF (0-3); Transitional Epithelial 0-3 HPF (None Seen); Urobilinogen Normal mg/dL (Less than 2); WBC/HPF 0-3 HPF (0-3)
[2018-12-11 22:33] LABS: Amphetamine Not Detected (NotDetected); Barbiturates Screen Detected (NotDetected); Benzodiazepine Screen Not Detected (NotDetected); Cocaine Metabolite Screen Not Detected (NotDetected); Medtox Control Line Valid? VALID (VALID); Medtox Reader # READER 4; Methadone Not Detected (NotDetected); Methamphetamine Not Detected (NotDetected); Opiate Screen Detected (NotDetected); Oxycodone Screen Not Detected (NotDetected); Phencyclidine (PCP) Not Detected (NotDetected); THC/Cannabinoid Screen Not Detected (NotDetected); Tricyclic Screen Not Detected (NotDetected); Urine Culture Reflex No No
[2018-12-11] MEDS ORDERED: rOPINIRole HCl 0.5 MG TAB PO PRN (23:29)
[2018-12-12] MEDS ORDERED: DULoxetine 60 MG CAP PO SCH (00:30)
[2018-12-12] MEDS ORDERED: busPIRone HCl 10 MG TAB PO SCH (00:30)
[2018-12-12] MEDS ORDERED: Ezetimibe 10 MG TAB PO SCH ×2 (00:30→21:00)
[2018-12-12 04:14] LABS: #Basophils 0.1 thou/uL (0.0-0.2); #Eosinphils 0.4 thou/uL (0.0-0.7); #Lymphocytes 2.6 thou/uL (1.20-3.40); #Monocytes 0.7 thou/uL (0.11-0.59); #Neutrophils 4.8 thou/uL (1.40-6.50); %Basophils 0.7 % (0.0-1.0); %Eosinophils 5.2 % (0.0-10.0); %Lymphocytes 30.3 % (21.0-51.0); %Monocytes 7.7 % (0.0-10.0); %Neutrophils 56.2 % (42.0-75.0); Hemoglobin 12.1 g/dL (12.0-16.0); Mean Corpuscular HGB CONC 33.7 g/dL (32.0-36.0); Mean Corpuscular Hemoglobin 29.7 pg (27.0-31.0); Mean Corpuscular Volume 88.1 fL (78.0-98.0); Mean Platelet Volume 6.7 fL (7.4-10.4); Platelet Count 299 thou/uL (130-400); RBC Distribution Width 13.6 % (11.5-14.5); Red Blood Cell (RBC) Count 4.08 mill/uL (4.20-5.40); White Blood Cell (WBC) Count 8.5 thou/uL (4.8-10.8)
[2018-12-12 04:36] LABS: Anion Gap 10 mmol/L (10-20); BUN (Urea Nitrogen) 20 mg/dL (9.8-20.1); Calc. Creatinine Clearance 60 mL/min (70-130); Calcium 9.5 mg/dL (7.8-10.44); Carbon Dioxide 28 mmol/L (23-31); Chloride 104 mmol/L (98-107); Cholesterol 118 mg/dl (< 200 Desired); Estimated GFR-MDRD 40; Glucose 118 mg/dL (80-115); HDL Cholesterol 40 mg/dL (>60 Neg Risk); LDL Cholesterol, Calculated 47 mg/dL; Potassium 4.4 mmol/L (3.5-5.1); Sodium 138 mmol/L (136-145); Triglycerides 156 mg/dL (Less than 150)
[2018-12-12] MEDS: Sodium Chloride 0.9% 1,000 ML IV SCH (08:45)
[2018-12-12] MEDS: lamoTRIgine 25 MG TAB PO SCH (08:47)
[2018-12-12] MEDS: Aspirin 81 mg Enteric Coated Tablet PO SCH (08:47)
[2018-12-12] MEDS: Pregabalin 75 MG CAP PO SCH (08:47)
[2018-12-12] MEDS: DULoxetine 60 MG CAP PO SCH ×2 (08:48→20:02)
[2018-12-12] MEDS: Clopidogrel Bisulfate 75 MG TAB PO SCH (08:48)
[2018-12-12] MEDS: Primidone 50 MG TAB PO SCH (08:48)
[2018-12-12] MEDS: busPIRone HCl 10 MG TAB PO SCH ×2 (08:48→20:02)
[2018-12-12] MEDS ORDERED: lamoTRIgine 25 MG TAB PO SCH (09:00)
[2018-12-12] MEDS ORDERED: Pregabalin 25 MG CAP PO SCH (09:00)
--- NOTE | 2018-12-12 10:47 | MRI ---
EXAM: MRI Brain WO Con PROVIDED CLINICAL HISTORY: Evidence for stroke COMPARISON: None FINDINGS: The ventricular system appears normal in size and morphology. There is no evidence for intracranial h emorrhage or mass effect. No evidence for restricted diffusion to suggest recent infarction. Focal area of signal alteration within the right hemipons is nonspecific but may reflect remote lacunar inf arction. Dilated perivascular spaces are seen involving the inferior aspects of each basal ganglia. Appropriate flow voids are seen within the major intracranial vessels. The extracranial soft tissues and calvarial marrow signal appear normal. IMPRESSION: 1. No evidence for restricted diffusion to suggest recent infarction. 2. Signal alteration within the [place] that may reflect remote lacunar infarction. Consider follow-up.
[2018-12-12] MEDS: HumaLOG 300 UNITS/3 ML VIAL SC PRN ×2 (12:27→17:48)
--- NOTE | 2018-12-12 12:57 | ULT ---
ULTRASOUND CAROTID DOPPLER STANDARD: HISTORY: Cerebrovascular accident. TIA. COMPARISON: None. FINDINGS: Real-time, red scale, color Doppler, and spectral analysis of the extracranial carotid and vertebral arteries was obtained. No other peak systolic velocities of the internal carotid arteries. Antegrade flow of both vertebral arteries. IMPRESSION: No hemodynamically significant stenosis. POS: HOME
--- NOTE | 2018-12-12 13:29 | PDOC.HOSPP ---
- Subjective Encounter Date: 12/12/18 Encounter Time: 13:28 Subjective: pt up in chair no complains - Objective Vital Signs & Weight: Vital Signs (12 hours) Temp Pulse Pulse Pulse Resp BP BP 12/12/18 11:10 98.1 F 68 16 12/12/18 09:47 64 70 104/57 L 128/57 L 12/12/18 07:52 12/12/18 07:32 97.3 F L 59 L 16 12/12/18 03:53 97.9 F 60 16 BP BP BP BP Pulse Ox 12/12/18 11:10 128/61 99 12/12/18 09:47 12/12/18 07:52 100/61 102/54 L 123/62 12/12/18 07:32 119/65 100 12/12/18 03:53 114/61 98 Weight Weight 192 lb 14.4 oz I&O: 12/11/18 12/12/18 12/13/18 06:59 06:59 06:59 Intake Total 1280 938 Balance 1280 938 Result Diagrams: 12/12/18 04:02 12/12/18 04:02 Additional Labs: Accuchecks 12/12/18 12/12/18 12/11/18 11:47 06:03 19:04 POC Glucose 228 H 90 133 H 12/11/18 12/11/18 15:01 13:24 POC Glucose 124 H 61 L Hospitalist ROS - Review of Systems Respiratory: denies: cough, dry, shortness of breath, hemoptysis, SOB with excertion, pleuritic pain, sputum, wheezing, other Cardiovascular: denies: chest pain, palpitations, orthopnea, paroxysmal noc. dyspnea, edema, light headedness, other Gastrointestinal: denies: nausea, vomitting, abdominal pain, diarrhea, constipation, melena, hematochezia, other - Medication Medications: Active Medications Generic Name Dose Route Start Last Admin Trade Name Shakaq PRN Reason Stop Dose Admin Aspirin 81 mg 12/12/18 09:00 12/12/18 08:47 Ecotrin PO 81 mg DAILY DONI Administration Atorvastatin Calcium 80 mg 12/11/18 21:00 12/11/18 21:34 Lipitor PO 80 mg HS DONI Administration Buspirone HCl 20 mg 12/12/18 09:00 12/12/18 08:48 Buspar PO 20 mg BID DONI Administration Clopidogrel Bisulfate 75 mg 12/12/18 09:00 12/12/18 08:48 Plavix PO 75 mg QAM DONI Administration Duloxetine HCl 60 mg 12/12/18 09:00 12/12/18 08:48 Cymbalta PO 60 mg BID DONI Administration Sodium Chloride 1,000 mls @ 70 mls/hr 12/11/18 17:45 12/12/18 08:45 Normal Saline 0.9% IV 1,000 mls .[id number] DONI Administration Insulin Human Lispro 0 units 12/11/18 17:35 12/12/18 12:27 Humalog SC 3 unit .MILD SLIDING SCALE PRN Administration Mild Correctional Scale Lamotrigine 25 mg 12/12/18 09:00 12/12/18 08:47 Lamictal PO 25 mg DAILY DONI Administration Pantoprazole Sodium 40 mg 12/11/18 21:00 12/12/18 08:47 Protonix PO 40 mg BID DONI Administration Pramipexole Dihydrochloride 0.25 mg 12/11/18 21:00 12/11/18 21:34 Mirapex PO 0.25 mg HS DONI Administration Pregabalin 75 mg 12/12/18 09:00 12/12/18 08:47 Lyrica PO 75 mg DAILY DONI Administration Primidone 25 mg 12/12/18 09:00 12/12/18 08:48 Mysoline PO 25 mg DAILY DONI Administration Sodium Chloride 10 ml 12/11/18 21:00 12/12/18 08:48 Flush - Normal Saline IVF Not Given Q12HR DONI - Exam Neck: negative: supple, symmetric, no JVD, no thyromegaly, no lymphadenopathy, no carotid bruit, JVD Heart: negative: RRR, no murmur, no gallops, no rubs, normal peripheral pulses, irregular, diminshed peripheral pulses, murmur present, II/IV, III/IV Respiratory: negative: CTAB, no wheezes, no rales, no ronchi, normal chest expansion, no tachypnea, normal percussion, rales, rhonchi, tachypneic, wheezes Hosp A/P (1) Stroke Code(s): I63.9 - CEREBRAL INFARCTION, UNSPECIFIED Status: Acute (2) Diabetes Code(s): E11.9 - TYPE 2 DIABETES MELLITUS WITHOUT COMPLICATIONS Status: Chronic Qualifiers: Diabetes mellitus type: type 2 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 echo pending. mri indicated lacuna infract in juan david. carotid negative. neurology has been consulted
[2018-12-12] MEDS: Acetaminophen/Codeine 30-300mg Tablet PO PRN ×2 (14:58→20:57)
[2018-12-12] MEDS: Pramipexole Di-HCl 0.25 MG TAB PO SCH (20:02)
[2018-12-12] MEDS: Atorvastatin Calcium 40 MG TAB PO SCH (20:02)
[2018-12-12] MEDS ORDERED: Insulin Glargine 70 UNITS in Pre-Filled Syringe 1 EACH SC SCH (21:00)
[2018-12-12] MEDS ORDERED: INSULIN DEGLUDEC 70 UNIT SQ SCH (21:00)
[2018-12-13] MEDS: Acetaminophen/Codeine 30-300mg Tablet PO PRN ×2 (01:11→10:27)
[2018-12-13] MEDS: Sodium Chloride 0.9% 1,000 ML IV SCH (01:31)
[2018-12-13] MEDS: Primidone 50 MG TAB PO SCH (08:36)
[2018-12-13] MEDS: lamoTRIgine 25 MG TAB PO SCH (08:37)
[2018-12-13] MEDS: DULoxetine 60 MG CAP PO SCH (08:37)
[2018-12-13] MEDS: Pregabalin 75 MG CAP PO SCH (08:38)
[2018-12-13] MEDS: busPIRone HCl 10 MG TAB PO SCH (08:38)
[2018-12-13] MEDS: Aspirin 81 mg Enteric Coated Tablet PO SCH (08:38)
[2018-12-13] MEDS: Clopidogrel Bisulfate 75 MG TAB PO SCH (08:39)
[2018-12-13] MEDS ORDERED: Atorvastatin Calcium 40 MG TAB PO SCH (09:00)
[2018-12-13 10:38] LABS: Hemoglobin A1c 13.1 % (4.0-6.0)
[2018-12-13 10:48] LABS: Anion Gap 10 mmol/L (10-20); BUN (Urea Nitrogen) 11 mg/dL (9.8-20.1); Calc. Creatinine Clearance 80 mL/min (70-130); Calcium 9.2 mg/dL (7.8-10.44); Carbon Dioxide 25 mmol/L (23-31); Chloride 106 mmol/L (98-107); Estimated GFR-MDRD 57; Glucose 201 mg/dL (80-115); Potassium 4.9 mmol/L (3.5-5.1); Sodium 136 mmol/L (136-145)
[2018-12-13 11:28] VITALS: BP 144/73; TEMP 97.7
--- NOTE | 2018-12-13 11:43 | CON ---
DATE OF CONSULTATION: 12/13/2018 CONSULTING PHYSICIAN: Hospitalist Service. IMPRESSION: 1. Possible lacunar infarction below resolution of the MRI. 2. The patient is currently on maximum medical therapy. PLAN: 1. Continue aspirin, Plavix, and a statin. 2. The patient will be discharged home. HISTORY OF PRESENT ILLNESS: Ms. Su is a 63-year-old female, who reports having history of a prior stroke. About 4 months ago, she was seen at [facility]. She was started on therapy at that time. On 4 days prior to this visit, she reports developing left-sided numbness and some increased gait instability. She noted some intermittent blurring and double vision. There was a mild headache associated with it. She did not seek medical care right away due to her just waiting her from it. She eventually was admitted for evaluation on this. Two days ago, she had a carotid Doppler, which did not show any stenosis. Her MRI of the brain that was done yesterday did not show any evidence of acute ischemic event, but some chronic infarct in the ju[place]. Vital signs have been stable and she has been afebrile since admission. LABORATORY STUDIES: Unremarkable other than elevated blood glucose. Her cholesterol ratio is 3.0. PAST MEDICAL HISTORY: Diabetes, stroke. ALLERGIES: NUMEROUS IS LISTED. SOCIAL HISTORY: No tobacco use. FAMILY HISTORY: Noncontributory. MEDICATION LIST: Reviewed. REVIEW OF SYSTEMS: Ten-system review of systems is otherwise negative. PHYSICAL EXAMINATION: VITAL SIGNS: Blood pressure 140/69, pulse 67, respirations 18, and temperature 97.3. HEENT: Pupils are equal and reactive. Conjunctivae are clear. Oropharynx clear. Cranium, normocephalic and atraumatic. NECK: Supple. No lymphadenopathy. EXTREMITIES: No cyanosis, clubbing, or edema. NEUROLOGIC: She is alert and appropriate. Her speech is fluent and clear. Cranial nerve exam showed subtle left facial droop. Motor exam showed good strength bilaterally. There was no fix or drift. There is no tremor or dysmetria present. Sensation was intact to touch. She can walk independently. IMAGING DATA: EKG shows normal sinus rhythm. SUMMARY: A 63-year-old woman with subjective complaints of left-sided numbness, incoordination, mild headache and vision disturbance suggesting the possibility of some recurrent brainstem ischemia. She has returned to her baseline. She is currently on maximum medical therapy. There is no other changes I would make. Job ID: [id number]
[2018-12-13] MEDS: HumaLOG 300 UNITS/3 ML VIAL SC PRN (12:41)
--- NOTE | 2018-12-13 21:56 | DIS ---
DATE OF ADMISSION: 12/11/2018 DATE OF DISCHARGE: 12/13/2018 DISCHARGE DIAGNOSES: 1. Stroke. 2. Diabetes. 3. Hypertension. HOSPITAL COURSE: The patient is a 63-year-old female, who initially presented to the hospital with complaints of left-sided numbness. At this time, she did undergo a CT dissection, which was normal. She also had a CT brain, which did not show any acute abnormalities. She did undergo a brain MRI, which indicated no evidence of restricted diffusion to suggest recent infarct; however, she did have a signal alteration within the juan david that may reflect a remote lacunar infarct. The patient also was seen by Neurology, who recommended to continue the aspirin, Plavix and a statin. Also, the patient underwent a carotid Doppler, which was essentially normal. Her echo was done; however, the results were pending and patient wanted to go home, so her echo read is still pending. MEDICATIONS: Her home medications are as of the following. She is on; 1. Aspirin 81. 2. Atorvastatin 40 mg daily. 3. Plaquenil 75 mg daily. 4. Duloxetine 60 mg b.i.d. 5. Lasix 40 mg q.a.m. 6. Protonix 40 mg b.i.d. 7. Primidone 25 mg daily. 8. Buspirone 20 mg b.i.d. 9. Lyrica 75 mg daily. PHYSICAL EXAMINATION: VITAL SIGNS: Temperature of 97.7, pulse 75, respiratory rate 16, O2 saturation 99% on room air, blood pressure 144/73. GENERAL: She is awake, alert, and oriented x3. Does not appear in distress. CV: S1, S2 present. No murmurs, rubs, or gallops. ABDOMEN: Soft and nontender. Bowel sounds are present x2. EXTREMITIES: No edema. Again, she will be discharged home. She will follow up with her primary. Job ID: [id number]
== END 2018-12-13 13:26 | disposition home or self-care (01) ==
LOC: ERS 13:07 → 2SE 18:03
PROVIDERS: ADMIT Internal Medicine; ATTEND Internal Medicine
DX: I63.9 Cerebral infarction, unspecified (principal); E11.649 Type 2 diabetes mellitus with hypoglycemia without coma; I69.398 Other sequelae of cerebral infarction; R26.9 Unspecified abnormalities of gait and mobility; G89.29 Other chronic pain; M54.5 Low back pain; I25.10 Atherosclerotic heart disease of native coronary artery without angina pectoris; G43.909 Migraine, unspecified, not intractable, without status migrainosus; F31.9 Bipolar disorder, unspecified; F41.9 Anxiety disorder, unspecified; F17.290 Nicotine dependence, other tobacco product, uncomplicated; I95.9 Hypotension, unspecified; I10 Essential (primary) hypertension; Z79.02 Long term (current) use of antithrombotics/antiplatelets; Z79.4 Long term (current) use of insulin; Z79.82 Long term (current) use of aspirin; Z79.899 Other long term (current) drug therapy; Z88.0 Allergy status to penicillin; Z88.1 Allergy status to other antibiotic agents; Z88.2 Allergy status to sulfonamides; Z88.5 Allergy status to narcotic agent; Z88.8 Allergy status to other drugs, medicaments and biological substances; Z91.048 Other nonmedicinal substance allergy status; Z98.1 Arthrodesis status
CPT/HCPCS: 70450; 70551; 71046; 80048 ×2; 80053; 80061; 80306; 81001; 82962 ×3; 83036; 83735; 83880; 84484 ×2; 85025 ×2; 85610; 85730; 90732; 93005; 93306; 93880; 96361 ×3; 96374; 97139 ×3; 99291; G0009; G0378 ×4; 36415; 36416; 90471; J1815; Q9966

== ENCOUNTER 2018-12-18 13:46 | Outpatient (CLI) | payer MEDICARE ==
--- NOTE | 2018-12-18 14:55 | RAD ---
LUMBAR SPINE: Date: 12/18/18 INDICATION: Lumbar stenosis with claudication. COMPARISON: 11/13/18. FINDINGS: Postoperative changes are again noted. Pedicle screws are seen on the right at L3-4. Strut-type disc implants are seen at L4-5 and L5-S1. Posterior bony fusion changes. There are degenerative changes with anterior osteophytes prominent at L1-2. Findings appear stable fr om the exam of 11/13/18. IMPRESSION: Degenerative and postoperative changes of lumbar spine appear stable. POS: TROY
== END 2018-12-18 13:47 | disposition home or self-care (01) ==
LOC: TBSIIMAG 13:46
PROVIDERS: ATTEND Neurological Surgery
DX: M48.061 Spinal stenosis, lumbar region without neurogenic claudication (principal); M47.26 Other spondylosis with radiculopathy, lumbar region; Z98.890 Other specified postprocedural states
CPT/HCPCS: 72100

== ENCOUNTER 2019-01-18 11:05 | Outpatient (CLI) | payer MEDICARE ==
--- NOTE | 2019-01-18 16:24 | MRI ---
MRI CERVICAL SPINE WITHOUT CONTRAST: Date: 01/18/19 HISTORY: Spondylosis with myelopathy and radiculopathy. FINDINGS: Appropriate T1 marrow signal intensity of the cervical vertebra. Cervical spine vertebral body height is maintained. No fracture. No significant STIR hyperintensity to suggest vertebral body edema or li gamentous injury. Visualized brain parenchyma, cervicomedullary junction, cervical cord, and the upper thoracic cord sullivan ve a normal size and signal intensity. There is a nonspecific T2 hyperintensity noted in the mid brai n, just to the right of midline. This lesion is noted on a brain MRI from 12/12/18. C2-C3: No significant central canal stenosis. Mild right foraminal narrowing. Left neural foramen is patent. C3-C4: Broad based disc osteophyte complex with a central disc protrusion. No significant central ca nal stenosis. Right neural foramen is patent. Mild left neural foraminal narrowing. C4-C5: Broad based disc osteophyte complex abuts the thecal sac. No significant central canal stenos is. Right neural foramen is mildly narrowed. Left neural foramen is patent. C5-C6: road based disc osteophyte complex abuts the thecal sac. No significant central canal stenosi s or significant neural foraminal narrowing. C6-C7: Broad based disc osteophyte complex nearly effaces the ventral subarachnoid space. Mild centr al canal stenosis. Bilaterally, neural foramina are patent. C7-T1: No significant central canal stenosis or significant neural foraminal narrowing. IMPRESSION: Degenerative changes of the cervical spine as above. No evidence of high grade central canal stenosis or high grade neural foraminal narrowing. POS: OFF
--- NOTE | 2019-01-18 16:33 | MRI ---
THORACIC SPINE MRI WITHOUT CONTRAST: Date: 01/18/19 HISTORY: Spondylolysis with myelopathy and radiculopathy. FINDINGS: Appropriate T1 marrow signal intensity of the thoracic vertebra. Thoracic spine vertebral body height is maintained. No fracture. No significant STIR hyperintensity to suggest vertebral body edema or li gamentous injury. Visualized mediastinum, lung parenchyma, and solid organs are grossly unremarkable. The thoracic cord has a normal size and signal intensity. Conus medullaris terminates at the inferior aspect of T12. Limited evaluation of the axial images due to motion degradation. Mild to moderate central canal sten osis at T7-T8 secondary to right paracentral disc bulge. Mild central canal stenosis at T8-T9 due to midline disc protrusion. T9-T10: Mild central canal stenosis secondary to a right paracentral disc protrusion. T10-T11: Broad based disc bulge effaces the subarachnoid space. Mild central canal stenosis. IMPRESSION: Multilevel degenerative change of the thoracic spine as described above. Limited evaluation due to mo tion degradation. POS: OFF
== END 2019-01-18 11:06 | disposition home or self-care (01) ==
LOC: SCSMRI 11:05
PROVIDERS: ATTEND Neurological Surgery
DX: M47.12 Other spondylosis with myelopathy, cervical region (principal); M47.814 Spondylosis without myelopathy or radiculopathy, thoracic region
CPT/HCPCS: 72141; 72146

== ENCOUNTER 2020-12-15 11:20 | Observation (INO) | payer MEDICARE, MEDICAID ==
[2020-12-15 14:00] LABS: #Basophils 0.1 thou/uL (0.0-0.2); #Eosinphils 0.2 thou/uL (0.0-0.7); #Lymphocytes 2.3 thou/uL (1.20-3.40); #Monocytes 0.7 thou/uL (0.11-0.59); #Neutrophils 6.1 thou/uL (1.40-6.50); %Basophils 1.3 % (0.0-1.0); %Eosinophils 2.4 % (0.0-10.0); %Lymphocytes 24.3 % (21.0-51.0); %Monocytes 7.6 % (0.0-10.0); %Neutrophils 64.5 % (42.0-75.0); Hemoglobin 14.9 g/dL (12.0-16.0); Mean Corpuscular HGB CONC 31.8 g/dL (32.0-36.0); Mean Corpuscular Hemoglobin 26.3 pg (27.0-31.0); Mean Corpuscular Volume 82.7 fL (78.0-98.0); Mean Platelet Volume 7.8 fL (7.4-10.4); Platelet Count 332 thou/uL (130-400); RBC Distribution Width 16.8 % (11.5-14.5); Red Blood Cell (RBC) Count 5.67 mill/uL (4.20-5.40); White Blood Cell (WBC) Count 9.4 thou/uL (4.8-10.8)
[2020-12-15 14:24] LABS: ALT (SGPT) 34 U/L (8-55); AST (SGOT) 32 U/L (5-34); Albumin 4.2 g/dL (3.4-4.8); Alkaline Phosphatase 78 U/L (40-110); Anion Gap 16 mmol/L (10-20); BUN (Urea Nitrogen) 24 mg/dL (9.8-20.1); Bilirubin, Total 0.3 mg/dL (0.2-1.2); Calc. Creatinine Clearance 0 mL/min (70-130); Calcium 9.5 mg/dL (7.8-10.44); Carbon Dioxide 19 mmol/L (23-31); Chloride 107 mmol/L (98-107); Globulin 3.3 g/dL (2.4-3.5); Glucose 157 mg/dL (80-115); Potassium 4.1 mmol/L (3.5-5.1); Protein, Total 7.5 g/dL (5.8-8.1); Sodium 138 mmol/L (136-145)
[2020-12-15] MEDS ORDERED: Magnesium 2 GM/50 ML BAG (IN WATER) ONE (14:36)
[2020-12-15 16:38] LABS: Bilirubin Negative (Negative); Blood, Urine Trace (Negative); Clarity Clear (Clear); Glucose, Urine (Dipstick) Greater than 1000 mg/dL (Negative); Ketone, Urine Negative (Negative); Leukocyte 250 Leu/uL (Negative); Nitrite Negative (Negative); Protein, Urine (Dipstick) Negative (Neg-Trace); RBC/HPF 0-3 HPF (0-3); Specific Gravity, Urine 1.017 (1.002-1.036); Urobilinogen Normal mg/dL (Less than 2); WBC/HPF 0-3 HPF (0-3); pH, Urine 6.5 (5.0-9.0)
[2020-12-15 16:50] LABS: Bacteria/HPF 1+ HPF (None Seen)
[2020-12-15] MEDS ORDERED: Morphine 4 MG/ML VIAL ONE (17:23)
[2020-12-15] MEDS ORDERED: Ondansetron PF 4 MG/2 ML Vial ONE (17:23)
[2020-12-15] MEDS ORDERED: Senokot S 8.6-50 MG TAB PO PRN (20:42)
[2020-12-15] MEDS ORDERED: Acetaminophen 325 MG TAB PO PRN (20:42)
[2020-12-15] MEDS ORDERED: HYDROcodone/Acetaminophen 5/325 mg Tablet PO PRN (20:42)
[2020-12-15] MEDS ORDERED: Ondansetron PF 4 MG/2 ML Vial IVP PRN (20:42)
[2020-12-15] MEDS ORDERED: Bisacodyl 5 MG TAB PO PRN (20:42)
[2020-12-15] MEDS ORDERED: Enoxaparin Sodium 40 MG/0.4 ML SYRINGE SC SCH (20:45)
[2020-12-15] MEDS ORDERED: Melatonin 3 MG TAB PO PRN (20:50)
[2020-12-15] MEDS ORDERED: HumaLOG 300 UNITS/3 ML VIAL SC PRN ×2 (21:00)
[2020-12-15] MEDS ORDERED: Dextrose 5% in Water 1,000 ML IV PRN (21:00)
[2020-12-15] MEDS ORDERED: Dextrose 50% Abboject 50 ML SYRINGE SLOW IVP PRN (21:00)
[2020-12-15] MEDS ORDERED: Famotidine/PF 20 mg/2ml Vial SLOW IVP SCH (21:00)
[2020-12-15 21:40] VITALS: BMI 27.9
[2020-12-15 22:07] LABS: #Basophils 0.1 thou/uL (0.0-0.2); #Eosinphils 0.3 thou/uL (0.0-0.7); #Lymphocytes 2.1 thou/uL (1.20-3.40); #Monocytes 0.7 thou/uL (0.11-0.59); #Neutrophils 5.5 thou/uL (1.40-6.50); %Eosinophils 3.1 % (0.0-10.0); %Lymphocytes 24.3 % (21.0-51.0); %Monocytes 7.7 % (0.0-10.0); %Neutrophils 63.9 % (42.0-75.0); Hemoglobin 13.2 g/dL (12.0-16.0); Mean Corpuscular HGB CONC 31.4 g/dL (32.0-36.0); Mean Corpuscular Hemoglobin 26.4 pg (27.0-31.0); Mean Platelet Volume 7.9 fL (7.4-10.4); Platelet Count 325 thou/uL (130-400); Red Blood Cell (RBC) Count 5.02 mill/uL (4.20-5.40); White Blood Cell (WBC) Count 8.6 thou/uL (4.8-10.8)
[2020-12-15] MEDS: Sodium Chloride 0.9% 1,000 ML IV SCH (22:14)
[2020-12-15] MEDS: HYDROcodone/Acetaminophen 7.5/325 mg Tablet PO PRN (22:25)
[2020-12-15 22:32] LABS: ALT (SGPT) 28 U/L (8-55); AST (SGOT) 22 U/L (5-34); Albumin 3.8 g/dL (3.4-4.8); Alkaline Phosphatase 64 U/L (40-110); Anion Gap 12 mmol/L (10-20); BUN (Urea Nitrogen) 19 mg/dL (9.8-20.1); Bilirubin, Total 0.3 mg/dL (0.2-1.2); Calc. Creatinine Clearance 61 mL/min (70-130); Calcium 8.6 mg/dL (7.8-10.44); Carbon Dioxide 24 mmol/L (23-31); Chloride 108 mmol/L (98-107); Globulin 2.7 g/dL (2.4-3.5); Glucose 177 mg/dL (80-115); Protein, Total 6.5 g/dL (5.8-8.1); Sodium 140 mmol/L (136-145)
[2020-12-16 06:17] LABS: Hemoglobin A1c 12.7 % (4.0-6.0)
[2020-12-16 06:27] LABS: Cardiac Risk 2.4 (Less than 4.5)
[2020-12-16] MEDS: HYDROcodone/Acetaminophen 7.5/325 mg Tablet PO PRN (08:37)
[2020-12-16] MEDS ORDERED: Famotidine/PF 20 mg/2ml Vial SLOW IVP SCH (09:00)
[2020-12-16] MEDS ORDERED: Enoxaparin Sodium 40 MG/0.4 ML SYRINGE SC SCH (09:00)
[2020-12-16] MEDS: Sodium Chloride 0.9% 1,000 ML IV SCH (10:42)
[2020-12-16] MEDS ORDERED: Fioricet 325/50/40 mg Tablet PO PRN (11:49)
[2020-12-16] MEDS ORDERED: Dextrose 50% Abboject 50 ML SYRINGE SLOW IVP PRN (11:51)
[2020-12-16] MEDS ORDERED: Insulin Regular 300 UNITS/3 ML VIAL SC PRN (11:51)
[2020-12-16] MEDS ORDERED: Dextrose 5% in Water 1,000 ML IV PRN (11:51)
[2020-12-16 12:30] VITALS: BP 134/72; TEMP 98
== END 2020-12-16 14:27 | disposition home or self-care (01) ==
LOC: ERS 11:20 → 3SE 18:09
PROVIDERS: ADMIT Family Medicine; ATTEND Internal Medicine
DX: I63.9 Cerebral infarction, unspecified (principal); R27.0 Ataxia, unspecified; R42 Dizziness and giddiness; N17.9 Acute kidney failure, unspecified; N30.00 Acute cystitis without hematuria; I25.10 Atherosclerotic heart disease of native coronary artery without angina pectoris; G89.29 Other chronic pain; R51.9 Headache, unspecified; G43.909 Migraine, unspecified, not intractable, without status migrainosus; E11.311 Type 2 diabetes mellitus with unspecified diabetic retinopathy with macular edema; I10 Essential (primary) hypertension; Z79.02 Long term (current) use of antithrombotics/antiplatelets; Z79.4 Long term (current) use of insulin; Z79.899 Other long term (current) drug therapy; Z79.890 Hormone replacement therapy; Z88.0 Allergy status to penicillin; Z88.1 Allergy status to other antibiotic agents; Z88.2 Allergy status to sulfonamides; Z88.8 Allergy status to other drugs, medicaments and biological substances; Z91.041 Radiographic dye allergy status; Z91.048 Other nonmedicinal substance allergy status; Z91.09 Other allergy status, other than to drugs and biological substances; Z95.1 Presence of aortocoronary bypass graft; Z86.73 Personal history of transient ischemic attack (TIA), and cerebral infarction without residual deficits; Z87.891 Personal history of nicotine dependence
CPT/HCPCS: 70450; 70551; 80053 ×2; 80061; 82962 ×2; 83036; 85025 ×2; 87040; 87086; 93005; 93880; 97139 ×2; G0378 ×3; 36415; 36416; 81003; 81015; 96365; 96366; 96375; J1815; J2270; J2405; J3475; J7050

== ENCOUNTER 2021-03-04 13:34 | Inpatient (IN) | payer MEDICARE, MEDICAID ==
[2021-03-04 16:04] LABS: #Basophils 0.1 thou/uL (0.0-0.2); #Eosinphils 0.1 thou/uL (0.0-0.7); #Lymphocytes 1.6 thou/uL (1.20-3.40); #Monocytes 0.7 thou/uL (0.11-0.59); #Neutrophils 5.7 thou/uL (1.40-6.50); %Basophils 0.8 % (0.0-1.0); %Eosinophils 1.7 % (0.0-10.0); %Lymphocytes 19.4 % (21.0-51.0); %Monocytes 8.2 % (0.0-10.0); %Neutrophils 69.9 % (42.0-75.0); Hemoglobin 12.6 g/dL (12.0-16.0); Mean Corpuscular HGB CONC 33.2 g/dL (32.0-36.0); Mean Corpuscular Hemoglobin 28.7 pg (27.0-31.0); Mean Corpuscular Volume 86.5 fL (78.0-98.0); Platelet Count 255 thou/uL (130-400); RBC Distribution Width 14.1 % (11.5-14.5); Red Blood Cell (RBC) Count 4.38 mill/uL (4.20-5.40); White Blood Cell (WBC) Count 8.2 thou/uL (4.8-10.8)
[2021-03-04 16:24] LABS: ALT (SGPT) 18 U/L (8-55); AST (SGOT) 12 U/L (5-34); Albumin 3.8 g/dL (3.4-4.8); Alkaline Phosphatase 80 U/L (40-110); Anion Gap 14 mmol/L (10-20); BUN (Urea Nitrogen) 13 mg/dL (9.8-20.1); Bilirubin, Total 0.6 mg/dL (0.2-1.2); Calc. Creatinine Clearance 0 mL/min (70-130); Calcium 9.6 mg/dL (7.8-10.44); Carbon Dioxide 24 mmol/L (23-31); Chloride 100 mmol/L (98-107); Globulin 3.2 g/dL (2.4-3.5); Glucose 450 mg/dL (80-115); Potassium 3.8 mmol/L (3.5-5.1); Sodium 134 mmol/L (136-145)
[2021-03-04] MEDS ORDERED: Morphine 4 MG/ML VIAL ONE (17:06)
[2021-03-04] MEDS ORDERED: Vancomycin 1 GM/200 ML BAG ONE (17:06)
[2021-03-04] MEDS ORDERED: Dextrose 5% in Water 1,000 ML IV PRN (18:42)
[2021-03-04] MEDS ORDERED: Dextrose 50% Abboject 50 ML SYRINGE SLOW IVP PRN (18:42)
[2021-03-04] MEDS ORDERED: Ondansetron PF 4 MG/2 ML Vial IVP PRN (18:42)
[2021-03-04] MEDS ORDERED: Acetaminophen 325 MG TAB PO PRN (18:42)
[2021-03-04] MEDS ORDERED: Ondansetron ODT 4 MG TAB PO PRN (18:42)
[2021-03-04] MEDS ORDERED: tiZANidine HCl 4 MG TAB PO PRN (19:59)
[2021-03-04 20:31] VITALS: BMI 28.1
[2021-03-04] MEDS: Ezetimibe 10 MG TAB PO SCH (20:46)
[2021-03-04] MEDS: rOPINIRole HCl 0.5 MG TAB PO SCH (20:46)
[2021-03-04] MEDS: Atenolol 25 MG TAB PO SCH (20:47)
[2021-03-04] MEDS: Spironolactone 25 MG TAB PO SCH (20:48)
[2021-03-04] MEDS ORDERED: Lantus 1000 UNITS/10 ML VIAL SC SCH (21:00)
[2021-03-04] MEDS: HumaLOG 300 UNITS/3 ML VIAL SC PRN (21:53)
[2021-03-04] MEDS ORDERED: HYDROcodone/Acetaminophen 5/325 mg Tablet PO PRN (22:02)
[2021-03-04] MEDS: Cefepime 2 GM in Sodium Chloride 0.9% 100 ML IVPB SCH (22:27)
[2021-03-04] MEDS: Morphine 4 MG/ML VIAL SLOW IVP PRN (22:32)
[2021-03-05] MEDS: HumaLOG 300 UNITS/3 ML VIAL SC PRN ×3 (05:08→17:39)
[2021-03-05] MEDS: Cefepime 2 GM in Sodium Chloride 0.9% 100 ML IVPB SCH ×3 (05:09→21:16)
[2021-03-05] MEDS: Morphine 4 MG/ML VIAL SLOW IVP PRN (08:40)
[2021-03-05 08:43] LABS: SARS-CoV-2 PCR by NAA Not Detected (NotDetected)
[2021-03-05] MEDS: Atenolol 25 MG TAB PO SCH ×2 (08:46→21:15)
[2021-03-05] MEDS: Clopidogrel Bisulfate 75 MG TAB PO SCH (08:46)
[2021-03-05] MEDS: Empagliflozin 10 MG TAB PO SCH (08:46)
[2021-03-05] MEDS: Losartan 25 MG TAB PO SCH (08:47)
[2021-03-05] MEDS: Spironolactone 25 MG TAB PO SCH ×2 (08:47→21:16)
[2021-03-05] MEDS: Atorvastatin Calcium 40 MG TAB PO SCH (08:48)
[2021-03-05] MEDS: Enoxaparin Sodium 40 MG/0.4 ML SYRINGE SC SCH (08:48)
[2021-03-05 08:57] LABS: #Basophils 0.1 thou/uL (0.0-0.2); #Eosinphils 0.3 thou/uL (0.0-0.7); #Lymphocytes 2.1 thou/uL (1.20-3.40); #Monocytes 0.8 thou/uL (0.11-0.59); #Neutrophils 6.1 thou/uL (1.40-6.50); %Basophils 0.8 % (0.0-1.0); %Eosinophils 2.8 % (0.0-10.0); %Lymphocytes 22.9 % (21.0-51.0); %Monocytes 8.5 % (0.0-10.0); Hemoglobin 12.9 g/dL (12.0-16.0); Mean Corpuscular HGB CONC 32.9 g/dL (32.0-36.0); Mean Corpuscular Hemoglobin 28.9 pg (27.0-31.0); Mean Corpuscular Volume 87.8 fL (78.0-98.0); Mean Platelet Volume 6.9 fL (7.4-10.4); Platelet Count 260 thou/uL (130-400); RBC Distribution Width 14.1 % (11.5-14.5); Red Blood Cell (RBC) Count 4.45 mill/uL (4.20-5.40); White Blood Cell (WBC) Count 9.3 thou/uL (4.8-10.8)
[2021-03-05] MEDS: Vilazodone Hcl [Viibryd] 40 MG Tablet PO SCH (09:00)
[2021-03-05 09:17] LABS: Anion Gap 11 mmol/L (10-20); BUN (Urea Nitrogen) 13 mg/dL (9.8-20.1); Calc. Creatinine Clearance 75 mL/min (70-130); Calcium 9.4 mg/dL (7.8-10.44); Carbon Dioxide 22 mmol/L (23-31); Chloride 103 mmol/L (98-107); Glucose 291 mg/dL (80-115); Sodium 132 mmol/L (136-145)
[2021-03-05] MEDS ORDERED: Iopamidol-370 76% 500 ML 1 ML ONE (09:49)
[2021-03-05] MEDS: Vancomycin 1.5 GRAM/300 ML BAG 1.5 GM in Premix Bag 1 BAG IVPB SCH (10:31)
[2021-03-05] MEDS ORDERED: Lantus 1000 UNITS/10 ML VIAL SC SCH ×2 (11:45→21:00)
[2021-03-05] MEDS ORDERED: diphenhydrAMINE 25 MG CAP PO PRN (13:27)
[2021-03-05] MEDS ORDERED: Lactated Ringer's 1,000 ML IV SCH (19:15)
[2021-03-05] MEDS ORDERED: Lactated Ringer's 500 ML IV SCH (20:45)
[2021-03-05] MEDS: Ezetimibe 10 MG TAB PO SCH (21:14)
[2021-03-05] MEDS: rOPINIRole HCl 0.5 MG TAB PO SCH (21:16)
[2021-03-06] MEDS: Morphine 4 MG/ML VIAL SLOW IVP PRN ×2 (00:01→06:29)
[2021-03-06] MEDS: Cefepime 2 GM in Sodium Chloride 0.9% 100 ML IVPB SCH ×2 (05:32→14:14)
[2021-03-06] MEDS ORDERED: Hydrocortisone 10 mg Tablet PO SCH (06:00)
[2021-03-06] MEDS ORDERED: Heparin 10,000 UNITS/ 10 ML VIAL ONE (06:44)
[2021-03-06] MEDS ORDERED: Fentanyl 100 MCG/2 ML VIAL ONE (07:12)
[2021-03-06] MEDS ORDERED: Midazolam HCl 2 mg/2 ml Vial ONE ×2 (07:12→07:52)
[2021-03-06] MEDS ORDERED: Iopamidol 370 76% 100 ML VIAL ONE (09:16)
[2021-03-06 11:15] LABS: Vancomycin, Trough 9.6 ug/mL
[2021-03-06] MEDS ORDERED: VANCOMYCIN 1.75 GM/350 ML BAG 1.75 GM in Premix Bag 1 BAG IVPB SCH (12:00)
[2021-03-06] MEDS: Atorvastatin Calcium 40 MG TAB PO SCH (12:11)
[2021-03-06] MEDS: Clopidogrel Bisulfate 75 MG TAB PO SCH (12:11)
[2021-03-06] MEDS: Acetaminophen/Codeine 30-300mg Tablet PO PRN ×2 (12:13→16:40)
[2021-03-06] MEDS: Empagliflozin 10 MG TAB PO SCH (12:16)
[2021-03-06] MEDS: Vilazodone Hcl [Viibryd] 40 MG Tablet PO SCH (12:16)
[2021-03-06] MEDS: Enoxaparin Sodium 40 MG/0.4 ML SYRINGE SC SCH (12:17)
[2021-03-06] MEDS: Vancomycin 1.5 GRAM/300 ML BAG 1.5 GM in Premix Bag 1 BAG IVPB SCH (13:12)
[2021-03-06] MEDS: Spironolactone 25 MG TAB PO SCH (13:12)
[2021-03-06] MEDS: Atenolol 25 MG TAB PO SCH (13:12)
[2021-03-06 14:11] VITALS: BP 102/58; TEMP 98.1
[2021-03-06] MEDS: Losartan 25 MG TAB PO SCH (14:11)
[2021-03-06] MEDS ORDERED: Ciprofloxacin 500 MG TAB PO SCH (20:00)
[2021-03-06] MEDS ORDERED: Doxycycline 100 MG CAP PO SCH (21:00)
[2021-03-07] MEDS ORDERED: FLU VACC QS2021-22(65YR UP)/PF 240 MCG/0.7 ML SYRINGE IM ONE (09:00)
== END 2021-03-06 18:19 | disposition home or self-care (01) | DRG 253 ==
LOC: ERS 13:34 → T4-B 17:31
PROVIDERS: ADMIT Student in an Organized Health Care Education/Training Program; ATTEND Student in an Organized Health Care Education/Training Program
PROC: 047K3DZ Dilation of Right Femoral Artery with Intraluminal Device, Percutaneous Approach (ICD-10-PCS; principal; 2021-03-06)
PROC: B41D1ZZ Fluoroscopy of Aorta and Bilateral Lower Extremity Arteries using Low Osmolar Contrast (ICD-10-PCS; 2021-03-06)
DX: E11.51 Type 2 diabetes mellitus with diabetic peripheral angiopathy without gangrene (principal); M86.8X7 Other osteomyelitis, ankle and foot; Z20.822 Contact with and (suspected) exposure to COVID-19; E11.621 Type 2 diabetes mellitus with foot ulcer; E11.69 Type 2 diabetes mellitus with other specified complication; I27.24 Chronic thromboembolic pulmonary hypertension; F31.9 Bipolar disorder, unspecified; G89.29 Other chronic pain; M54.9 Dorsalgia, unspecified; I25.10 Atherosclerotic heart disease of native coronary artery without angina pectoris; F17.290 Nicotine dependence, other tobacco product, uncomplicated; N18.2 Chronic kidney disease, stage 2 (mild); E11.22 Type 2 diabetes mellitus with diabetic chronic kidney disease; L97.519 Non-pressure chronic ulcer of other part of right foot with unspecified severity; I12.9 Hypertensive chronic kidney disease with stage 1 through stage 4 chronic kidney disease, or unspecified chronic kidney disease; Z88.1 Allergy status to other antibiotic agents; Z91.040 Latex allergy status; Z88.0 Allergy status to penicillin; Z88.8 Allergy status to other drugs, medicaments and biological substances; Z91.09 Other allergy status, other than to drugs and biological substances; Z79.899 Other long term (current) drug therapy; Z86.73 Personal history of transient ischemic attack (TIA), and cerebral infarction without residual deficits; Z98.1 Arthrodesis status; Z90.49 Acquired absence of other specified parts of digestive tract; Z82.49 Family history of ischemic heart disease and other diseases of the circulatory system; Z80.0 Family history of malignant neoplasm of digestive organs
CPT/HCPCS: 36415; 36416; 37226; 75635; 76942; 80048; 80053; 80202; 85025; 85347; 85652; 86140; 93923; 96365; 96375; 99152; 99153; J0692; J1644; J1650; J1815; J2250; J2270; J3010; J3370; J3490; J7120; Q0162; U0003; U0005

== ENCOUNTER 2021-03-11 18:44 | Inpatient (IN) | payer MEDICARE, MEDICAID ==
[~2021-03-11 18:44] MED LIST changes: +Heparin 1,000 UNITS/ML VIAL ONE; -ISOVUE-370 76%-LOCM 1 ML ONE
[2021-03-11 20:57] LABS: #Basophils 0.1 thou/uL (0.0-0.2); #Eosinphils 0.3 thou/uL (0.0-0.7); #Lymphocytes 1.5 thou/uL (1.20-3.40); #Monocytes 0.5 thou/uL (0.11-0.59); #Neutrophils 4.6 thou/uL (1.40-6.50); %Eosinophils 4.4 % (0.0-10.0); %Lymphocytes 21.7 % (21.0-51.0); %Monocytes 7.3 % (0.0-10.0); %Neutrophils 65.5 % (42.0-75.0); Hemoglobin 12.9 g/dL (12.0-16.0); Mean Corpuscular HGB CONC 33.4 g/dL (32.0-36.0); Mean Corpuscular Hemoglobin 29.2 pg (27.0-31.0); Mean Corpuscular Volume 87.5 fL (78.0-98.0); Mean Platelet Volume 6.9 fL (7.4-10.4); Platelet Count 386 thou/uL (130-400); RBC Distribution Width 14.1 % (11.5-14.5); Red Blood Cell (RBC) Count 4.42 mill/uL (4.20-5.40)
[2021-03-11] MEDS ORDERED: Vancomycin 1.5 GRAM/300 ML BAG 1.5 GM in Premix Bag 1 BAG IVPB SCH (21:00)
[2021-03-11] MEDS ORDERED: Cefepime 2 GM VIAL ONE (21:07)
[2021-03-11 21:10] LABS: ALT (SGPT) 22 U/L (8-55); AST (SGOT) 16 U/L (5-34); Alkaline Phosphatase 136 U/L (40-110); Anion Gap 17 mmol/L (10-20); BUN (Urea Nitrogen) 18 mg/dL (9.8-20.1); Bilirubin, Total 0.3 mg/dL (0.2-1.2); CRP (Inflammatory) 1.18 mg/dL (= or < 0.5); Calc. Creatinine Clearance 0 mL/min (70-130); Calcium 9.9 mg/dL (7.8-10.44); Carbon Dioxide 23 mmol/L (23-31); Chloride 98 mmol/L (98-107); Globulin 3.7 g/dL (2.4-3.5); Potassium 3.8 mmol/L (3.5-5.1); Protein, Total 7.7 g/dL (5.8-8.1); Sodium 134 mmol/L (136-145)
[2021-03-11 21:22] LABS: Glucose 695 mg/dL (80-115)
[2021-03-11] MEDS ORDERED: Morphine 4 MG/ML VIAL ONE (21:27)
[2021-03-11 23:06] VITALS: BMI 27.2
[2021-03-11 23:41] LABS: Lactic Acid 1.9 mmol/L (0.5-2.2)
[2021-03-12] MEDS: HumaLOG 300 UNITS/3 ML VIAL SC PRN ×4 (02:15→21:23)
[2021-03-12] MEDS ORDERED: Dextrose 5% in Water 1,000 ML IV PRN ×2 (02:15→03:09)
[2021-03-12] MEDS ORDERED: Dextrose 50% Abboject 50 ML SYRINGE IVP PRN (02:15)
[2021-03-12] MEDS ORDERED: Morphine 4 MG/ML VIAL SLOW IVP SCH (03:00)
[2021-03-12] MEDS ORDERED: Ondansetron PF 4 MG/2 ML Vial IVP PRN (03:09)
[2021-03-12] MEDS ORDERED: Dextrose 50% Abboject 50 ML SYRINGE SLOW IVP PRN (03:09)
[2021-03-12] MEDS ORDERED: Ondansetron ODT 4 MG TAB PO PRN (03:09)
[2021-03-12] MEDS: Sodium Chloride 0.9% 1,000 ML IV SCH ×3 (03:26→06:50)
[2021-03-12] MEDS ORDERED: Lantus 1000 UNITS/10 ML VIAL SC SCH ×2 (03:30→21:00)
[2021-03-12 07:55] LABS: Anion Gap 9 mmol/L (10-20); BUN (Urea Nitrogen) 15 mg/dL (9.8-20.1); Calc. Creatinine Clearance 77 mL/min (70-130); Calcium 9.4 mg/dL (7.8-10.44); Carbon Dioxide 29 mmol/L (23-31); Chloride 104 mmol/L (98-107); Glucose 98 mg/dL (80-115); Potassium 3.4 mmol/L (3.5-5.1); Sodium 139 mmol/L (136-145)
[2021-03-12 08:03] LABS: #Basophils 0.1 thou/uL (0.0-0.2); #Eosinphils 0.2 thou/uL (0.0-0.7); #Lymphocytes 1.5 thou/uL (1.20-3.40); #Monocytes 0.6 thou/uL (0.11-0.59); #Neutrophils 3.9 thou/uL (1.40-6.50); %Eosinophils 3.7 % (0.0-10.0); %Lymphocytes 24.1 % (21.0-51.0); %Monocytes 9.1 % (0.0-10.0); %Neutrophils 62.2 % (42.0-75.0); Hemoglobin 11.3 g/dL (12.0-16.0); Mean Corpuscular HGB CONC 31.5 g/dL (32.0-36.0); Mean Corpuscular Hemoglobin 27.4 pg (27.0-31.0); Mean Corpuscular Volume 86.9 fL (78.0-98.0); Mean Platelet Volume 6.7 fL (7.4-10.4); Platelet Count 380 thou/uL (130-400); RBC Distribution Width 13.7 % (11.5-14.5); Red Blood Cell (RBC) Count 4.13 mill/uL (4.20-5.40); White Blood Cell (WBC) Count 6.3 thou/uL (4.8-10.8)
[2021-03-12] MEDS: CEFEPIME HCL IN DEXTROSE 5 % 1 GM/50 ML BAG IVPB SCH ×2 (08:29→23:36)
[2021-03-12] MEDS: Enoxaparin Sodium 40 MG/0.4 ML SYRINGE SC SCH (08:30)
[2021-03-12] MEDS ORDERED: VANCOMYCIN 1.25 GM/250 ML BAG 1.25 GM in Premix Bag 1 BAG IVPB SCH (09:00)
[2021-03-12] MEDS ORDERED: Acetaminophen 325 MG TAB PO PRN ×2 (14:17→14:18)
[2021-03-12] MEDS: Morphine 4 MG/ML VIAL SLOW IVP PRN (15:13)
[2021-03-12] MEDS ORDERED: Non-Formulary Item 1 EACH (Acetaminophen With Codeine [Acetaminophen/Codeine #4] 300 MG/6 PO PRN (20:02)
[2021-03-12] MEDS: Pramipexole Di-HCl 0.25 MG TAB PO SCH (21:10)
[2021-03-12] MEDS: Acetaminophen/Codeine 30-300mg Tablet PO PRN (21:10)
[2021-03-12] MEDS: Lantus 1000 UNITS/10 ML VIAL SC SCH (21:12)
[2021-03-12] MEDS: Vancomycin 1 GM in Premix Bag 1 BAG IVPB SCH (22:00)
[2021-03-13] MEDS: Acetaminophen/Codeine 30-300mg Tablet PO PRN ×2 (05:35→16:26)
[2021-03-13] MEDS: HumaLOG 300 UNITS/3 ML VIAL SC PRN ×3 (05:36→22:14)
[2021-03-13] MEDS: Enoxaparin Sodium 40 MG/0.4 ML SYRINGE SC SCH (08:42)
[2021-03-13 09:11] LABS: Hemoglobin 11.9 g/dL (12.0-16.0); Mean Corpuscular HGB CONC 31.2 g/dL (32.0-36.0); Mean Corpuscular Hemoglobin 27.3 pg (27.0-31.0); Mean Corpuscular Volume 87.7 fL (78.0-98.0); Mean Platelet Volume 6.6 fL (7.4-10.4); Platelet Count 386 thou/uL (130-400); RBC Distribution Width 13.9 % (11.5-14.5); Red Blood Cell (RBC) Count 4.36 mill/uL (4.20-5.40)
[2021-03-13 09:20] LABS: Calc. Creatinine Clearance 72 mL/min (70-130); Potassium 3.9 mmol/L (3.5-5.1)
[2021-03-13] MEDS: Cefepime 2 GM in Sodium Chloride 0.9% 100 ML IVPB SCH ×2 (11:56→22:05)
[2021-03-13] MEDS ORDERED: Lantus 1000 UNITS/10 ML VIAL SC SCH (14:15)
[2021-03-13] MEDS ORDERED: Clopidogrel Bisulfate 75 MG TAB PO SCH (14:15)
[2021-03-13] MEDS ORDERED: Aspirin 81 mg Enteric Coated Tablet PO SCH (14:15)
[2021-03-13] MEDS: Lantus 1000 UNITS/10 ML VIAL SC SCH ×2 (16:25→22:13)
[2021-03-13] MEDS: Clotrimazole 2% 3 Day Vag Cr 22.2 GM TUBE VAG SCH (20:31)
[2021-03-13] MEDS ORDERED: Fluconazole 100 MG TAB PO SCH (21:00)
[2021-03-13 21:09] LABS: Vancomycin, Trough 5.7 ug/mL
[2021-03-13] MEDS: Vancomycin 1 GM in Premix Bag 1 BAG IVPB SCH ×2 (21:56→23:48)
[2021-03-13] MEDS: Pramipexole Di-HCl 0.25 MG TAB PO SCH (22:02)
[2021-03-14] MEDS: Acetaminophen/Codeine 30-300mg Tablet PO PRN ×2 (06:00→17:56)
[2021-03-14] MEDS: Furosemide 40 MG TAB PO SCH (06:01)
[2021-03-14] MEDS: HumaLOG 300 UNITS/3 ML VIAL SC PRN ×3 (06:02→20:27)
[2021-03-14] MEDS: Atorvastatin Calcium 40 MG TAB PO SCH (08:44)
[2021-03-14] MEDS: Aspirin 81 mg Enteric Coated Tablet PO SCH (08:44)
[2021-03-14] MEDS: Enoxaparin Sodium 40 MG/0.4 ML SYRINGE SC SCH (08:45)
[2021-03-14] MEDS: Lantus 1000 UNITS/10 ML VIAL SC SCH (08:45)
[2021-03-14] MEDS: Clopidogrel Bisulfate 75 MG TAB PO SCH (08:45)
[2021-03-14] MEDS: Cefepime 2 GM in Sodium Chloride 0.9% 100 ML IVPB SCH ×2 (08:47→20:26)
[2021-03-14] MEDS: Vancomycin 1 GM in Premix Bag 1 BAG IVPB SCH ×2 (10:17→21:41)
[2021-03-14] MEDS: Morphine 4 MG/ML VIAL SLOW IVP PRN (11:00)
[2021-03-14] MEDS ORDERED: Lantus 1000 UNITS/10 ML VIAL SC SCH (17:00)
[2021-03-14] MEDS: Pramipexole Di-HCl 0.25 MG TAB PO SCH (20:26)
[2021-03-14] MEDS: Clotrimazole 2% 3 Day Vag Cr 22.2 GM TUBE VAG SCH (20:35)
[2021-03-15] MEDS: Morphine 4 MG/ML VIAL SLOW IVP PRN ×2 (03:24→07:56)
[2021-03-15] MEDS: HumaLOG 300 UNITS/3 ML VIAL SC PRN ×2 (06:00→12:55)
[2021-03-15] MEDS: Atorvastatin Calcium 40 MG TAB PO SCH (07:56)
[2021-03-15] MEDS: Aspirin 81 mg Enteric Coated Tablet PO SCH (07:56)
[2021-03-15] MEDS: Furosemide 40 MG TAB PO SCH (07:56)
[2021-03-15] MEDS: Enoxaparin Sodium 40 MG/0.4 ML SYRINGE SC SCH (07:56)
[2021-03-15] MEDS: Clopidogrel Bisulfate 75 MG TAB PO SCH (07:56)
[2021-03-15] MEDS: Lantus 1000 UNITS/10 ML VIAL SC SCH (08:02)
[2021-03-15 08:26] VITALS: BP 142/66; TEMP 97.8
[2021-03-15 09:22] LABS: Vancomycin, Trough 15.4 ug/mL
[2021-03-15] MEDS: Acetaminophen/Codeine 30-300mg Tablet PO PRN (09:31)
[2021-03-15] MEDS: Cefepime 2 GM in Sodium Chloride 0.9% 100 ML IVPB SCH (09:32)
[2021-03-15] MEDS ORDERED: Empagliflozin 10 MG TAB PO SCH (11:00)
[2021-03-15] MEDS ORDERED: Ketorolac Tromethamine 30 MG/ML VIAL IVP SCH (11:00)
[2021-03-15] MEDS: Vancomycin 1 GM in Premix Bag 1 BAG IVPB SCH (11:19)
[2021-03-15] MEDS ORDERED: DAPTOmycin 500 MG in Sodium Chloride 0.9% 100 ML IVPB SCH (13:00)
[2021-03-15] MEDS ORDERED: Lantus 1000 UNITS/10 ML VIAL SC SCH (21:00)
== END 2021-03-15 13:59 | disposition home or self-care (01) | DRG 638 ==
LOC: ERS 18:44 → T4-B 21:52
PROVIDERS: ADMIT Student in an Organized Health Care Education/Training Program; ATTEND Internal Medicine
PROC: 02HV33Z Insertion of Infusion Device into Superior Vena Cava, Percutaneous Approach (ICD-10-PCS; principal; 2021-03-13)
PROC: B548ZZA Ultrasonography of Superior Vena Cava, Guidance (ICD-10-PCS; 2021-03-13)
DX: E11.69 Type 2 diabetes mellitus with other specified complication (principal); E87.1 Hypo-osmolality and hyponatremia; E11.52 Type 2 diabetes mellitus with diabetic peripheral angiopathy with gangrene; M86.8X7 Other osteomyelitis, ankle and foot; F41.9 Anxiety disorder, unspecified; F31.9 Bipolar disorder, unspecified; F17.290 Nicotine dependence, other tobacco product, uncomplicated; I25.10 Atherosclerotic heart disease of native coronary artery without angina pectoris; E78.5 Hyperlipidemia, unspecified; L03.031 Cellulitis of right toe; E11.621 Type 2 diabetes mellitus with foot ulcer; E11.65 Type 2 diabetes mellitus with hyperglycemia; L97.519 Non-pressure chronic ulcer of other part of right foot with unspecified severity; E11.22 Type 2 diabetes mellitus with diabetic chronic kidney disease; G89.29 Other chronic pain; N18.9 Chronic kidney disease, unspecified; D63.1 Anemia in chronic kidney disease; Z88.0 Allergy status to penicillin; Z88.8 Allergy status to other drugs, medicaments and biological substances; Z88.1 Allergy status to other antibiotic agents; Z91.040 Latex allergy status; Z98.1 Arthrodesis status; Z90.49 Acquired absence of other specified parts of digestive tract; Z90.710 Acquired absence of both cervix and uterus; Z95.1 Presence of aortocoronary bypass graft
CPT/HCPCS: 36415; 36416; 36569; 80048; 80053; 80202; 82550; 82565; 83605; 84132; 85025; 85027; 85652; 86140; 87040; 96365; 96367; 96375; C1751; J0692; J0878; J1644; J1650; J1815; J1885; J2270; J3370; J3490; J7050

== ENCOUNTER 2021-04-14 12:40 | Emergency (ER) | payer MEDICARE, MEDICAID | END 2021-04-14 13:46 | disposition home or self-care (01) | LOC: ERS 12:40 | DX: S90.111A Contusion of right great toe without damage to nail, initial encounter (principal); M86.671 Other chronic osteomyelitis, right ankle and foot; G43.909 Migraine, unspecified, not intractable, without status migrainosus; I25.10 Atherosclerotic heart disease of native coronary artery without angina pectoris; E11.9 Type 2 diabetes mellitus without complications; F17.290 Nicotine dependence, other tobacco product, uncomplicated; Z79.4 Long term (current) use of insulin; Z79.899 Other long term (current) drug therapy; M86.9 Osteomyelitis, unspecified | CPT/HCPCS: 96365; 96375; J0696; J1642; J3490 ==

== ENCOUNTER 2021-05-03 16:11 | Emergency (ER) | payer MEDICARE, MEDICAID ==
[2021-05-03 18:44] LABS: #Basophils 0.1 thou/uL (0.0-0.2); #Eosinphils 0.1 thou/uL (0.0-0.7); #Lymphocytes 2.1 thou/uL (1.20-3.40); #Monocytes 0.6 thou/uL (0.11-0.59); #Neutrophils 4.2 thou/uL (1.40-6.50); %Basophils 1.3 % (0.0-1.0); %Eosinophils 1.9 % (0.0-10.0); %Lymphocytes 30.1 % (21.0-51.0); %Monocytes 7.8 % (0.0-10.0); %Neutrophils 58.9 % (42.0-75.0); Hemoglobin 12.8 g/dL (12.0-16.0); Mean Corpuscular HGB CONC 32.5 g/dL (32.0-36.0); Mean Corpuscular Volume 85.9 fL (78.0-98.0); Mean Platelet Volume 7.1 fL (7.4-10.4); Platelet Count 293 thou/uL (130-400); RBC Distribution Width 13.6 % (11.5-14.5); Red Blood Cell (RBC) Count 4.59 mill/uL (4.20-5.40); White Blood Cell (WBC) Count 7.1 thou/uL (4.8-10.8)
[2021-05-03 19:04] LABS: ALT (SGPT) 32 U/L (8-55); AST (SGOT) 21 U/L (5-34); Albumin 4.1 g/dL (3.4-4.8); Alkaline Phosphatase 99 U/L (40-110); Anion Gap 12 mmol/L (10-20); BUN (Urea Nitrogen) 22 mg/dL (9.8-20.1); Bilirubin, Total 0.3 mg/dL (0.2-1.2); Calc. Creatinine Clearance 0 mL/min (70-130); Carbon Dioxide 28 mmol/L (23-31); Chloride 99 mmol/L (98-107); Globulin 3.1 g/dL (2.4-3.5); Glucose 493 mg/dL (80-115); Potassium 4.3 mmol/L (3.5-5.1); Protein, Total 7.2 g/dL (5.8-8.1); Sodium 135 mmol/L (136-145)
== END 2021-05-03 20:28 | disposition home or self-care (01) ==
LOC: ERS 16:11
DX: S91.301A Unspecified open wound, right foot, initial encounter (principal); W22.8XXA Striking against or struck by other objects, initial encounter; I10 Essential (primary) hypertension; E78.00 Pure hypercholesterolemia, unspecified; G43.909 Migraine, unspecified, not intractable, without status migrainosus; I25.10 Atherosclerotic heart disease of native coronary artery without angina pectoris; E11.9 Type 2 diabetes mellitus without complications; F17.290 Nicotine dependence, other tobacco product, uncomplicated
CPT/HCPCS: 36415; 80053; 85025; 85652; 86140

== ENCOUNTER 2021-05-30 08:41 | Inpatient (IN) | payer MEDICARE, MEDICAID ==
[2021-05-30 09:33] LABS: #Basophils 0.1 thou/uL (0.0-0.2); #Eosinphils 0.1 thou/uL (0.0-0.7); #Lymphocytes 1.6 thou/uL (1.20-3.40); #Monocytes 0.5 thou/uL (0.11-0.59); #Neutrophils 4.6 thou/uL (1.40-6.50); %Basophils 1.1 % (0.0-1.0); %Eosinophils 1.7 % (0.0-10.0); %Lymphocytes 22.6 % (21.0-51.0); %Monocytes 6.8 % (0.0-10.0); %Neutrophils 67.7 % (42.0-75.0); Mean Corpuscular Volume 87.2 fL (78.0-98.0); Mean Platelet Volume 6.9 fL (7.4-10.4); Platelet Count 328 thou/uL (130-400); RBC Distribution Width 13.7 % (11.5-14.5); Red Blood Cell (RBC) Count 4.51 mill/uL (4.20-5.40); White Blood Cell (WBC) Count 6.9 thou/uL (4.8-10.8)
[2021-05-30 09:36] LABS: ALT (SGPT) 27 U/L (8-55); AST (SGOT) 26 U/L (5-34); Albumin 3.8 g/dL (3.4-4.8); Alkaline Phosphatase 76 U/L (40-110); Anion Gap 17 mmol/L (10-20); BUN (Urea Nitrogen) 19 mg/dL (9.8-20.1); Bilirubin, Total 0.3 mg/dL (0.2-1.2); CK (CPK) 288 U/L (29-168); Calc. Creatinine Clearance 0 mL/min (70-130); Carbon Dioxide 19 mmol/L (23-31); Chloride 110 mmol/L (98-107); Globulin 3.2 g/dL (2.4-3.5); Glucose 192 mg/dL (80-115); Magnesium 1.9 mg/dL (1.6-2.6); Sodium 142 mmol/L (136-145)
[2021-05-30 09:48] LABS: Hemoglobin 12.3 g/dL (12.0-16.0)
[2021-05-30 09:49] LABS: Bilirubin Negative (Negative); Blood, Urine Negative (Negative); Clarity Clear (Clear); Glucose, Urine (Dipstick) Greater than 1000 mg/dL (Negative); Ketone, Urine Negative (Negative); Leukocyte Negative Leu/uL (Negative); Nitrite Negative (Negative); Protein, Urine (Dipstick) Negative (Neg-Trace); Specific Gravity, Urine 1.016 (1.002-1.036); Urobilinogen Normal mg/dL (Less than 2)
[2021-05-30 09:49] LABS: Mean Corpuscular HGB CONC 31.3 g/dL (32.0-36.0); Mean Corpuscular Hemoglobin 27.4 pg (27.0-31.0)
[2021-05-30 10:50] LABS: Amphetamine Not Detected (NotDetected); Barbiturates Screen Not Detected (NotDetected); Benzodiazepine Screen Not Detected (NotDetected); Cocaine Metabolite Screen Not Detected (NotDetected); Methadone Not Detected (NotDetected); Methamphetamine Not Detected (NotDetected); Opiate Screen Detected (NotDetected); Oxycodone Screen Not Detected (NotDetected); Phencyclidine (PCP) Not Detected (NotDetected); THC/Cannabinoid Screen Not Detected (NotDetected); Tricyclic Screen Not Detected (NotDetected)
[2021-05-30] MEDS ORDERED: Lorazepam 2 MG/ML VIAL ONE (11:20)
[2021-05-30 11:47] LABS: Acetaminophen Less than 6.0 mcg/mL (10.0-30.0); Alcohol Less than 10 mg/dL (Less than 10); Salicylate Less than 8.0 mg/dL (15.0-30.0)
[2021-05-30] MEDS ORDERED: Ondansetron PF 4 MG/2 ML Vial IVP PRN (12:55)
[2021-05-30] MEDS ORDERED: Acetaminophen 325 MG TAB PO PRN (12:55)
[2021-05-30] MEDS ORDERED: Dextrose 5% in Water 1,000 ML IV PRN (12:59)
[2021-05-30] MEDS ORDERED: Dextrose 50% Abboject 50 ML SYRINGE SLOW IVP PRN (12:59)
[2021-05-30 14:50] VITALS: BMI 31.1
[2021-05-30 22:12] LABS: SARS-CoV-2 PCR by NAA Not Detected (NotDetected)
[2021-05-31 04:07] LABS: #Basophils 0.1 thou/uL (0.0-0.2); #Eosinphils 0.1 thou/uL (0.0-0.7); #Lymphocytes 2.3 thou/uL (1.20-3.40); #Monocytes 0.8 thou/uL (0.11-0.59); #Neutrophils 7.4 thou/uL (1.40-6.50); %Basophils 0.9 % (0.0-1.0); %Eosinophils 1.3 % (0.0-10.0); %Lymphocytes 21.2 % (21.0-51.0); %Monocytes 7.5 % (0.0-10.0); Hemoglobin 11.5 g/dL (12.0-16.0); Mean Corpuscular Hemoglobin 27.9 pg (27.0-31.0); Mean Corpuscular Volume 87.1 fL (78.0-98.0); Mean Platelet Volume 6.8 fL (7.4-10.4); Platelet Count 316 thou/uL (130-400); RBC Distribution Width 13.6 % (11.5-14.5); Red Blood Cell (RBC) Count 4.13 mill/uL (4.20-5.40); White Blood Cell (WBC) Count 10.8 thou/uL (4.8-10.8)
[2021-05-31 04:23] LABS: Anion Gap 11 mmol/L (10-20); BUN (Urea Nitrogen) 10 mg/dL (9.8-20.1); Calc. Creatinine Clearance 78 mL/min (70-130); Calcium 8.4 mg/dL (7.8-10.44); Carbon Dioxide 20 mmol/L (23-31); Chloride 108 mmol/L (98-107); Glucose 157 mg/dL (80-115); Potassium 3.4 mmol/L (3.5-5.1); Sodium 136 mmol/L (136-145)
[2021-05-31] MEDS: Enoxaparin Sodium 40 MG/0.4 ML SYRINGE SC SCH (10:05)
[2021-06-01 03:55] LABS: #Basophils 0.1 thou/uL (0.0-0.2); #Eosinphils 0.4 thou/uL (0.0-0.7); #Lymphocytes 2.7 thou/uL (1.20-3.40); #Monocytes 0.7 thou/uL (0.11-0.59); #Neutrophils 3.5 thou/uL (1.40-6.50); %Basophils 1.2 % (0.0-1.0); %Eosinophils 5.4 % (0.0-10.0); %Monocytes 9.9 % (0.0-10.0); %Neutrophils 47.5 % (42.0-75.0); Hemoglobin 12.3 g/dL (12.0-16.0); Mean Corpuscular HGB CONC 32.2 g/dL (32.0-36.0); Mean Corpuscular Hemoglobin 27.9 pg (27.0-31.0); Mean Corpuscular Volume 86.7 fL (78.0-98.0); Mean Platelet Volume 6.8 fL (7.4-10.4); Platelet Count 320 thou/uL (130-400); RBC Distribution Width 13.6 % (11.5-14.5); Red Blood Cell (RBC) Count 4.39 mill/uL (4.20-5.40); White Blood Cell (WBC) Count 7.4 thou/uL (4.8-10.8)
[2021-06-01 04:13] LABS: ALT (SGPT) 28 U/L (8-55); AST (SGOT) 28 U/L (5-34); Albumin 3.3 g/dL (3.4-4.8); Alkaline Phosphatase 57 U/L (40-110); Anion Gap 11 mmol/L (10-20); BUN (Urea Nitrogen) 16 mg/dL (9.8-20.1); Bilirubin, Total 0.2 mg/dL (0.2-1.2); Calc. Creatinine Clearance 67 mL/min (70-130); Carbon Dioxide 23 mmol/L (23-31); Chloride 109 mmol/L (98-107); Globulin 2.8 g/dL (2.4-3.5); Glucose 176 mg/dL (80-115); Protein, Total 6.1 g/dL (5.8-8.1); Sodium 139 mmol/L (136-145)
[2021-06-01] MEDS: Enoxaparin Sodium 40 MG/0.4 ML SYRINGE SC SCH (09:34)
[2021-06-01] MEDS: HumaLOG 300 UNITS/3 ML VIAL SC PRN ×2 (12:25→17:16)
[2021-06-02] MEDS: HumaLOG 300 UNITS/3 ML VIAL SC PRN ×2 (07:40→11:29)
[2021-06-02] MEDS: Enoxaparin Sodium 40 MG/0.4 ML SYRINGE SC SCH (09:02)
[2021-06-02 11:51] VITALS: BP 125/62; TEMP 97.1
[2021-06-02] MEDS ORDERED: Doxycycline 100 MG CAP PO SCH ×2 (12:45→21:00)
== END 2021-06-02 14:21 | disposition home or self-care (01) | DRG 917 ==
LOC: ERS 08:41 → IMCU/EMU 12:43 → 2NO 05-31 20:21
PROVIDERS: ADMIT Internal Medicine; ATTEND Internal Medicine
DX: T43.222A Poisoning by selective serotonin reuptake inhibitors, intentional self-harm, initial encounter (principal); G92.8 Other toxic encephalopathy; F33.1 Major depressive disorder, recurrent, moderate; I25.10 Atherosclerotic heart disease of native coronary artery without angina pectoris; I10 Essential (primary) hypertension; F31.9 Bipolar disorder, unspecified; E11.649 Type 2 diabetes mellitus with hypoglycemia without coma; Z20.822 Contact with and (suspected) exposure to COVID-19; F41.9 Anxiety disorder, unspecified; Z88.1 Allergy status to other antibiotic agents; Z88.2 Allergy status to sulfonamides; Z88.0 Allergy status to penicillin; Z88.8 Allergy status to other drugs, medicaments and biological substances; Z91.040 Latex allergy status; Z79.02 Long term (current) use of antithrombotics/antiplatelets; Z79.82 Long term (current) use of aspirin; Z79.4 Long term (current) use of insulin; Z79.899 Other long term (current) drug therapy; Z90.49 Acquired absence of other specified parts of digestive tract; Z90.710 Acquired absence of both cervix and uterus; Z98.890 Other specified postprocedural states; Z87.891 Personal history of nicotine dependence
CPT/HCPCS: 36415; 36416; 70450; 80048; 80053; 80306; 80307; 81003; 82550; 83605; 83735; 84443; 84484; 85025; 93005; 96374; J1650; J1815; J2060; U0003; U0005

== ENCOUNTER 2021-11-15 20:52 | Inpatient (IN) | payer OTHER, MEDICAID ==
[2021-11-15] MEDS ORDERED: Vancomycin 1 GM/200 ML BAG ONE (21:24)
[2021-11-15 22:00] LABS: #Basophils 0.1 thou/uL (0.0-0.2); #Eosinphils 0.3 thou/uL (0.0-0.7); #Lymphocytes 2.2 thou/uL (1.20-3.40); #Monocytes 0.6 thou/uL (0.11-0.59); #Neutrophils 3.8 thou/uL (1.40-6.50); %Eosinophils 4.3 % (0.0-10.0); %Lymphocytes 31.8 % (21.0-51.0); %Monocytes 8.1 % (0.0-10.0); %Neutrophils 54.7 % (42.0-75.0); Hemoglobin 11.6 g/dL (12.0-16.0); Mean Corpuscular Hemoglobin 27.2 pg (27.0-31.0); Mean Platelet Volume 7.3 fL (7.4-10.4); Platelet Count 267 thou/uL (130-400); RBC Distribution Width 14.5 % (11.5-14.5); Red Blood Cell (RBC) Count 4.25 mill/uL (4.20-5.40); White Blood Cell (WBC) Count 6.9 thou/uL (4.8-10.8)
[2021-11-15 22:22] LABS: ALT (SGPT) 17 U/L (8-55); AST (SGOT) 22 U/L (5-34); Albumin 3.5 g/dL (3.4-4.8); Alkaline Phosphatase 92 U/L (40-110); Anion Gap 18 mmol/L (10-20); BUN (Urea Nitrogen) 17 mg/dL (9.8-20.1); Bilirubin, Total 0.2 mg/dL (0.2-1.2); CRP (Inflammatory) 1.21 mg/dL (= or < 0.5); Calc. Creatinine Clearance 0 mL/min (70-130); Calcium 8.9 mg/dL (7.8-10.44); Carbon Dioxide 19 mmol/L (23-31); Chloride 104 mmol/L (98-107); Estimated GFR 47; Globulin 3.2 g/dL (2.4-3.5); Glucose 422 mg/dL (80-115); Potassium 3.9 mmol/L (3.5-5.1); Protein, Total 6.7 g/dL (5.8-8.1); Sodium 137 mmol/L (136-145)
[2021-11-15] MEDS ORDERED: Ondansetron PF 4 MG/2 ML Vial IVP PRN (23:50)
[2021-11-15] MEDS ORDERED: Acetaminophen 325 MG TAB PO PRN (23:50)
[2021-11-15] MEDS ORDERED: Dextrose 5% in Water 1,000 ML IV PRN (23:52)
[2021-11-15] MEDS ORDERED: Dextrose 50% Abboject 50 ML SYRINGE SLOW IVP PRN (23:52)
[2021-11-16] MEDS ORDERED: Cefepime 2 GM in Sodium Chloride 0.9% 100 ML IVPB SCH ×2 (00:15→13:00)
[2021-11-16 00:42] VITALS: BMI 29.7
[2021-11-16] MEDS ORDERED: Cefepime 2 GM VIAL ONE (00:50)
[2021-11-16] MEDS ORDERED: Vancomycin HCl 750 MG in Sodium Chloride 0.9% 250 ML 250 ML IVPB SCH (01:00)
[2021-11-16] MEDS ORDERED: HumaLOG 300 UNITS/3 ML VIAL ONE (01:34)
[2021-11-16] MEDS ORDERED: Acetaminophen 325 MG TAB ONE (01:41)
[2021-11-16] MEDS: HumaLOG 300 UNITS/3 ML VIAL SC PRN ×4 (01:54→20:51)
[2021-11-16 03:37] LABS: SARS-CoV-2 NAA Rapid Test Not Detected (NotDetected)
[2021-11-16 07:30] LABS: Anion Gap 11 mmol/L (10-20); BUN (Urea Nitrogen) 17 mg/dL (9.8-20.1); Calc. Creatinine Clearance 66 mL/min (70-130); Calcium 8.6 mg/dL (7.8-10.44); Carbon Dioxide 23 mmol/L (23-31); Chloride 110 mmol/L (98-107); Estimated GFR 53; Glucose 412 mg/dL (80-115); Potassium 3.5 mmol/L (3.5-5.1); Sodium 140 mmol/L (136-145)
[2021-11-16 07:45] LABS: #Basophils 0.1 thou/uL (0.0-0.2); #Eosinphils 0.3 thou/uL (0.0-0.7); #Lymphocytes 1.6 thou/uL (1.20-3.40); #Monocytes 0.5 thou/uL (0.11-0.59); #Neutrophils 3.6 thou/uL (1.40-6.50); %Eosinophils 4.8 % (0.0-10.0); %Lymphocytes 26.7 % (21.0-51.0); %Monocytes 8.5 % (0.0-10.0); Hemoglobin 11.7 g/dL (12.0-16.0); Mean Corpuscular HGB CONC 31.7 g/dL (32.0-36.0); Mean Corpuscular Hemoglobin 27.6 pg (27.0-31.0); Mean Corpuscular Volume 87.1 fL (78.0-98.0); Mean Platelet Volume 7.3 fL (7.4-10.4); Platelet Count 266 thou/uL (130-400); RBC Distribution Width 14.4 % (11.5-14.5); Red Blood Cell (RBC) Count 4.24 mill/uL (4.20-5.40)
[2021-11-16] MEDS ORDERED: Aspirin 81 mg Enteric Coated Tablet PO SCH (09:00)
[2021-11-16] MEDS: Furosemide 40 MG TAB PO SCH ×2 (11:34→12:29)
[2021-11-16] MEDS: Spironolactone 25 MG TAB PO SCH ×2 (11:34→17:24)
[2021-11-16] MEDS: Atorvastatin Calcium 40 MG TAB PO SCH (11:34)
[2021-11-16] MEDS: Atenolol 25 MG TAB PO SCH (11:34)
[2021-11-16] MEDS: DULoxetine 60 MG CAP PO SCH (11:34)
[2021-11-16] MEDS: Losartan 25 MG TAB PO SCH (11:35)
[2021-11-16] MEDS: Ezetimibe 10 MG TAB PO SCH (11:35)
[2021-11-16] MEDS: Insulin Glargine 30 UNITS/0.3 ML VIAL SC SCH (11:36)
[2021-11-16] MEDS: Enoxaparin Sodium 40 MG/0.4 ML SYRINGE SC SCH (11:36)
[2021-11-16] MEDS: Levothyroxine Sodium 25 MCG TAB PO SCH (11:38)
[2021-11-16] MEDS: Cefepime 1 GM in Sodium Chloride 0.9% 100 ML IVPB SCH (13:18)
[2021-11-16] MEDS: rOPINIRole HCl 1 MG TAB PO SCH (20:06)
[2021-11-16] MEDS: traZODone HCl 50 MG TAB PO SCH (22:05)
[2021-11-17] MEDS: Cefepime 1 GM in Sodium Chloride 0.9% 100 ML IVPB SCH ×2 (00:28→12:20)
[2021-11-17] MEDS: VANCOMYCIN 1.25 GM/250 ML BAG 1.25 GM in Premix Bag 1 BAG IVPB SCH (01:37)
[2021-11-17] MEDS: Levothyroxine Sodium 25 MCG TAB PO SCH (06:09)
[2021-11-17 06:12] LABS: #Basophils 0.1 thou/uL (0.0-0.2); #Eosinphils 0.4 thou/uL (0.0-0.7); #Lymphocytes 1.9 thou/uL (1.20-3.40); #Monocytes 0.7 thou/uL (0.11-0.59); #Neutrophils 4.1 thou/uL (1.40-6.50); %Basophils 0.9 % (0.0-1.0); %Eosinophils 5.1 % (0.0-10.0); %Lymphocytes 27.3 % (21.0-51.0); %Monocytes 9.2 % (0.0-10.0); %Neutrophils 57.5 % (42.0-75.0); Mean Corpuscular HGB CONC 31.9 g/dL (32.0-36.0); Mean Corpuscular Hemoglobin 27.4 pg (27.0-31.0); Mean Corpuscular Volume 85.9 fL (78.0-98.0); Mean Platelet Volume 7.3 fL (7.4-10.4); Platelet Count 277 thou/uL (130-400); RBC Distribution Width 14.9 % (11.5-14.5); Red Blood Cell (RBC) Count 4.37 mill/uL (4.20-5.40); White Blood Cell (WBC) Count 7.1 thou/uL (4.8-10.8)
[2021-11-17] MEDS: HumaLOG 300 UNITS/3 ML VIAL SC PRN ×4 (06:12→21:24)
[2021-11-17 06:32] LABS: Anion Gap 14 mmol/L (10-20); BUN (Urea Nitrogen) 15 mg/dL (9.8-20.1); Calc. Creatinine Clearance 75 mL/min (70-130); Carbon Dioxide 21 mmol/L (23-31); Chloride 106 mmol/L (98-107); Estimated GFR 62; Glucose 269 mg/dL (80-115); Potassium 3.6 mmol/L (3.5-5.1); Sodium 137 mmol/L (136-145)
[2021-11-17] MEDS: DULoxetine 60 MG CAP PO SCH ×2 (07:49→07:52)
[2021-11-17] MEDS: Enoxaparin Sodium 40 MG/0.4 ML SYRINGE SC SCH (07:49)
[2021-11-17] MEDS: Ezetimibe 10 MG TAB PO SCH (07:50)
[2021-11-17] MEDS: Spironolactone 25 MG TAB PO SCH ×2 (07:50→16:46)
[2021-11-17] MEDS: Atenolol 25 MG TAB PO SCH (07:50)
[2021-11-17] MEDS: Atorvastatin Calcium 40 MG TAB PO SCH (07:51)
[2021-11-17] MEDS: Furosemide 40 MG TAB PO SCH ×2 (07:51→11:46)
[2021-11-17] MEDS: Clopidogrel Bisulfate 75 MG TAB PO SCH (07:52)
[2021-11-17] MEDS: Losartan 25 MG TAB PO SCH (07:52)
[2021-11-17] MEDS: Insulin Glargine 30 UNITS/0.3 ML VIAL SC SCH (07:52)
[2021-11-17] MEDS: Aspirin 81 mg Enteric Coated Tablet PO SCH (07:57)
[2021-11-17] MEDS: rOPINIRole HCl 1 MG TAB PO SCH (21:21)
[2021-11-17] MEDS: traZODone HCl 50 MG TAB PO SCH (21:23)
[2021-11-18] MEDS: Cefepime 1 GM in Sodium Chloride 0.9% 100 ML IVPB SCH ×2 (00:56→12:44)
[2021-11-18] MEDS: VANCOMYCIN 1.25 GM/250 ML BAG 1.25 GM in Premix Bag 1 BAG IVPB SCH ×3 (03:04→16:08)
[2021-11-18] MEDS: traZODone HCl 50 MG TAB PO SCH ×2 (03:08→22:53)
[2021-11-18] MEDS: Levothyroxine Sodium 25 MCG TAB PO SCH (05:36)
[2021-11-18 06:34] LABS: #Basophils 0.1 thou/uL (0.0-0.2); #Eosinphils 0.3 thou/uL (0.0-0.7); #Lymphocytes 2.5 thou/uL (1.20-3.40); #Monocytes 0.8 thou/uL (0.11-0.59); %Basophils 0.9 % (0.0-1.0); %Lymphocytes 28.9 % (21.0-51.0); %Monocytes 9.4 % (0.0-10.0); %Neutrophils 56.8 % (42.0-75.0); Hemoglobin 13.3 g/dL (12.0-16.0); Mean Corpuscular HGB CONC 31.5 g/dL (32.0-36.0); Mean Corpuscular Hemoglobin 27.2 pg (27.0-31.0); Mean Corpuscular Volume 86.4 fL (78.0-98.0); Mean Platelet Volume 7.6 fL (7.4-10.4); Platelet Count 286 thou/uL (130-400); Red Blood Cell (RBC) Count 4.87 mill/uL (4.20-5.40); White Blood Cell (WBC) Count 8.8 thou/uL (4.8-10.8)
[2021-11-18 06:52] LABS: Anion Gap 16 mmol/L (10-20); BUN (Urea Nitrogen) 18 mg/dL (9.8-20.1); Calc. Creatinine Clearance 65 mL/min (70-130); Calcium 9.6 mg/dL (7.8-10.44); Carbon Dioxide 21 mmol/L (23-31); Chloride 102 mmol/L (98-107); Estimated GFR 53; Glucose 265 mg/dL (80-115); Potassium 4.1 mmol/L (3.5-5.1); Sodium 135 mmol/L (136-145)
[2021-11-18] MEDS: Atenolol 25 MG TAB PO SCH (07:59)
[2021-11-18] MEDS: Enoxaparin Sodium 40 MG/0.4 ML SYRINGE SC SCH (07:59)
[2021-11-18] MEDS: Aspirin 81 mg Enteric Coated Tablet PO SCH (07:59)
[2021-11-18] MEDS: Insulin Glargine 30 UNITS/0.3 ML VIAL SC SCH (07:59)
[2021-11-18] MEDS: Spironolactone 25 MG TAB PO SCH ×2 (08:00→16:09)
[2021-11-18] MEDS: Atorvastatin Calcium 40 MG TAB PO SCH (08:00)
[2021-11-18] MEDS: Furosemide 40 MG TAB PO SCH ×2 (08:00→12:02)
[2021-11-18] MEDS: Ezetimibe 10 MG TAB PO SCH (08:01)
[2021-11-18] MEDS: Losartan 25 MG TAB PO SCH (08:01)
[2021-11-18] MEDS: Clopidogrel Bisulfate 75 MG TAB PO SCH (08:10)
[2021-11-18] MEDS: HumaLOG 300 UNITS/3 ML VIAL SC PRN ×2 (12:02→18:00)
[2021-11-18] MEDS ORDERED: Iopamidol 370 76% 100 ML VIAL ONE (14:32)
[2021-11-18] MEDS: rOPINIRole HCl 1 MG TAB PO SCH (20:58)
[2021-11-19] MEDS: Cefepime 1 GM in Sodium Chloride 0.9% 100 ML IVPB SCH ×2 (00:20→12:33)
[2021-11-19] MEDS: VANCOMYCIN 1.25 GM/250 ML BAG 1.25 GM in Premix Bag 1 BAG IVPB SCH ×2 (04:17→16:20)
[2021-11-19] MEDS: Levothyroxine Sodium 25 MCG TAB PO SCH (04:17)
[2021-11-19] MEDS: Enoxaparin Sodium 40 MG/0.4 ML SYRINGE SC SCH (07:59)
[2021-11-19] MEDS: DULoxetine 60 MG CAP PO SCH (08:00)
[2021-11-19] MEDS: Atenolol 25 MG TAB PO SCH (08:00)
[2021-11-19] MEDS: Insulin Glargine 30 UNITS/0.3 ML VIAL SC SCH (08:00)
[2021-11-19] MEDS: Losartan 25 MG TAB PO SCH (08:01)
[2021-11-19] MEDS: Clopidogrel Bisulfate 75 MG TAB PO SCH (08:01)
[2021-11-19] MEDS: Atorvastatin Calcium 40 MG TAB PO SCH (08:01)
[2021-11-19] MEDS: Spironolactone 25 MG TAB PO SCH ×2 (08:01→16:34)
[2021-11-19] MEDS: Ezetimibe 10 MG TAB PO SCH (08:02)
[2021-11-19] MEDS: Aspirin 81 mg Enteric Coated Tablet PO SCH (08:02)
[2021-11-19] MEDS: Furosemide 40 MG TAB PO SCH ×2 (08:02→11:59)
[2021-11-19] MEDS: HumaLOG 300 UNITS/3 ML VIAL SC PRN (12:27)
[2021-11-19 15:40] LABS: Vancomycin, Trough 20.6 ug/mL
[2021-11-19] MEDS: Vancomycin 1 GM in Premix Bag 1 BAG IVPB SCH (16:17)
[2021-11-19] MEDS: rOPINIRole HCl 1 MG TAB PO SCH (20:22)
[2021-11-19] MEDS: traZODone HCl 50 MG TAB PO SCH (23:13)
[2021-11-20] MEDS: Cefepime 1 GM in Sodium Chloride 0.9% 100 ML IVPB SCH ×2 (00:38→12:24)
[2021-11-20] MEDS: Vancomycin 1 GM in Premix Bag 1 BAG IVPB SCH ×2 (04:28→16:33)
[2021-11-20] MEDS: Atenolol 25 MG TAB PO SCH (06:21)
[2021-11-20] MEDS: Levothyroxine Sodium 25 MCG TAB PO SCH (06:21)
[2021-11-20] MEDS ORDERED: methylPREDNISolone Sod Succ 40 MG VIAL IVP SCH (07:30)
[2021-11-20] MEDS ORDERED: Famotidine/PF 20 mg/2ml Vial SLOW IVP SCH (08:15)
[2021-11-20] MEDS: Furosemide 40 MG TAB PO SCH ×2 (08:30→12:24)
[2021-11-20] MEDS: DULoxetine 60 MG CAP PO SCH (08:30)
[2021-11-20] MEDS: Aspirin 81 mg Enteric Coated Tablet PO SCH (08:30)
[2021-11-20] MEDS: Ezetimibe 10 MG TAB PO SCH (08:30)
[2021-11-20] MEDS: Clopidogrel Bisulfate 75 MG TAB PO SCH (08:30)
[2021-11-20] MEDS: Spironolactone 25 MG TAB PO SCH ×2 (08:30→16:34)
[2021-11-20] MEDS: Losartan 25 MG TAB PO SCH (08:31)
[2021-11-20] MEDS: Insulin Glargine 30 UNITS/0.3 ML VIAL SC SCH (08:31)
[2021-11-20] MEDS: Atorvastatin Calcium 40 MG TAB PO SCH (08:31)
[2021-11-20] MEDS: Enoxaparin Sodium 40 MG/0.4 ML SYRINGE SC SCH (08:31)
[2021-11-20] MEDS ORDERED: Iopamidol 370 76% 100 ML VIAL ONE (09:35)
[2021-11-20] MEDS ORDERED: Lidocaine 1% MPF 2 ML VIAL ONE ×2 (11:49)
[2021-11-20] MEDS ORDERED: Heparin 10,000 UNITS/ 10 ML VIAL ONE (13:57)
[2021-11-20] MEDS ORDERED: Fentanyl 100 MCG/2 ML VIAL ONE (14:10)
[2021-11-20] MEDS: HumaLOG 300 UNITS/3 ML VIAL SC PRN ×2 (17:00→20:45)
[2021-11-20] MEDS: rOPINIRole HCl 1 MG TAB PO SCH (20:43)
[2021-11-20] MEDS: traZODone HCl 50 MG TAB PO SCH (20:53)
[2021-11-20] MEDS ORDERED: traZODone HCl 50 MG TAB PO PRN (21:00)
[2021-11-21] MEDS: Cefepime 1 GM in Sodium Chloride 0.9% 100 ML IVPB SCH ×2 (01:16→14:11)
[2021-11-21 03:34] LABS: Vancomycin, Trough 27.2 ug/mL
[2021-11-21] MEDS ORDERED: Vancomycin 1 GM in Premix Bag 1 BAG IVPB SCH (04:15)
[2021-11-21] MEDS: Vancomycin 1 GM in Premix Bag 1 BAG IVPB SCH (04:18)
[2021-11-21] MEDS: HumaLOG 300 UNITS/3 ML VIAL SC PRN ×2 (05:45→14:18)
[2021-11-21] MEDS: Levothyroxine Sodium 25 MCG TAB PO SCH (05:45)
[2021-11-21] MEDS: Losartan 25 MG TAB PO SCH (08:43)
[2021-11-21] MEDS: Furosemide 40 MG TAB PO SCH ×2 (08:43→14:11)
[2021-11-21] MEDS: DULoxetine 60 MG CAP PO SCH (08:43)
[2021-11-21] MEDS: Aspirin 81 mg Enteric Coated Tablet PO SCH (08:43)
[2021-11-21] MEDS: Spironolactone 25 MG TAB PO SCH (08:43)
[2021-11-21] MEDS: Enoxaparin Sodium 40 MG/0.4 ML SYRINGE SC SCH (08:43)
[2021-11-21] MEDS: Insulin Glargine 30 UNITS/0.3 ML VIAL SC SCH (08:43)
[2021-11-21] MEDS: Ezetimibe 10 MG TAB PO SCH (08:44)
[2021-11-21] MEDS: Atorvastatin Calcium 40 MG TAB PO SCH (08:44)
[2021-11-21] MEDS: Atenolol 25 MG TAB PO SCH (08:44)
[2021-11-21] MEDS: Clopidogrel Bisulfate 75 MG TAB PO SCH (08:45)
[2021-11-21 08:58] VITALS: BP 107/64; TEMP 98.4
[2021-11-21 10:38] LABS: Vancomycin, Random 19.2 ug/mL (See Comment)
[2021-11-21] MEDS ORDERED: VANCOMYCIN 1.25 GM/250 ML BAG 1.25 GM in Premix Bag 1 BAG IVPB SCH (12:00)
== END 2021-11-21 14:54 | disposition home or self-care (01) | DRG 253 ==
LOC: ERS 20:52 → ERHOLD 23:34 → T4-A 11-16 03:31
PROVIDERS: ADMIT Internal Medicine; ATTEND Internal Medicine
PROC: 047K3ZZ Dilation of Right Femoral Artery, Percutaneous Approach (ICD-10-PCS; principal; 2021-11-20)
PROC: 047M3ZZ Dilation of Right Popliteal Artery, Percutaneous Approach (ICD-10-PCS; 2021-11-20)
PROC: B4101ZZ Fluoroscopy of Abdominal Aorta using Low Osmolar Contrast (ICD-10-PCS; 2021-11-20)
PROC: B41F1ZZ Fluoroscopy of Right Lower Extremity Arteries using Low Osmolar Contrast (ICD-10-PCS; 2021-11-20)
DX: T82.856A Stenosis of peripheral vascular stent, initial encounter (principal); L03.115 Cellulitis of right lower limb; M86.8X7 Other osteomyelitis, ankle and foot; Z20.822 Contact with and (suspected) exposure to COVID-19; E11.51 Type 2 diabetes mellitus with diabetic peripheral angiopathy without gangrene; N18.2 Chronic kidney disease, stage 2 (mild); E11.22 Type 2 diabetes mellitus with diabetic chronic kidney disease; I12.9 Hypertensive chronic kidney disease with stage 1 through stage 4 chronic kidney disease, or unspecified chronic kidney disease; I25.10 Atherosclerotic heart disease of native coronary artery without angina pectoris; E11.621 Type 2 diabetes mellitus with foot ulcer; L97.519 Non-pressure chronic ulcer of other part of right foot with unspecified severity; E03.9 Hypothyroidism, unspecified; Y83.1 Surgical operation with implant of artificial internal device as the cause of abnormal reaction of the patient, or of later complication, without mention of misadventure at the time of the procedure; E11.69 Type 2 diabetes mellitus with other specified complication; E11.65 Type 2 diabetes mellitus with hyperglycemia; Z88.1 Allergy status to other antibiotic agents; Z91.041 Radiographic dye allergy status; Z91.040 Latex allergy status; Z88.0 Allergy status to penicillin; Z88.2 Allergy status to sulfonamides; Z88.8 Allergy status to other drugs, medicaments and biological substances; Z91.09 Other allergy status, other than to drugs and biological substances; Z79.899 Other long term (current) drug therapy; Z79.02 Long term (current) use of antithrombotics/antiplatelets; Z79.82 Long term (current) use of aspirin; Z79.4 Long term (current) use of insulin; Z79.890 Hormone replacement therapy; Z90.49 Acquired absence of other specified parts of digestive tract; Z90.710 Acquired absence of both cervix and uterus; Z95.1 Presence of aortocoronary bypass graft; Z98.1 Arthrodesis status; Z98.890 Other specified postprocedural states; Z82.49 Family history of ischemic heart disease and other diseases of the circulatory system; Z87.891 Personal history of nicotine dependence
CPT/HCPCS: 36415; 36416; 37224; 75635; 75710; 80048; 80053; 80202; 82565; 83036; 85025; 85347; 85652; 86140; 87070; 87205; 96374; 97139; J0692; J1644; J1650; J1815; J2920; J3010; J3370; J3490; J7050; Q9967; S0028; U0002

== ENCOUNTER 2021-12-06 23:47 | Inpatient (IN) | payer MEDICAID, MEDICARE, OTHER ==
[2021-12-07 00:27] LABS: #Basophils 0.1 thou/uL (0.0-0.2); #Eosinphils 0.4 thou/uL (0.0-0.7); #Monocytes 0.7 thou/uL (0.11-0.59); #Neutrophils 5.3 thou/uL (1.40-6.50); %Basophils 1.1 % (0.0-1.0); %Eosinophils 4.4 % (0.0-10.0); %Lymphocytes 23.5 % (21.0-51.0); %Monocytes 8.6 % (0.0-10.0); %Neutrophils 62.4 % (42.0-75.0); Hemoglobin 11.3 g/dL (12.0-16.0); Mean Corpuscular HGB CONC 32.5 g/dL (32.0-36.0); Mean Corpuscular Hemoglobin 27.8 pg (27.0-31.0); Mean Corpuscular Volume 85.4 fL (78.0-98.0); Mean Platelet Volume 7.2 fL (7.4-10.4); Platelet Count 295 thou/uL (130-400); RBC Distribution Width 14.7 % (11.5-14.5); Red Blood Cell (RBC) Count 4.07 mill/uL (4.20-5.40); White Blood Cell (WBC) Count 8.5 thou/uL (4.8-10.8)
[2021-12-07 00:51] LABS: ALT (SGPT) 25 U/L (8-55); AST (SGOT) 27 U/L (5-34); Albumin 3.7 g/dL (3.4-4.8); Alkaline Phosphatase 79 U/L (40-110); Anion Gap 18 mmol/L (10-20); BUN (Urea Nitrogen) 23 mg/dL (9.8-20.1); Bilirubin, Total 0.3 mg/dL (0.2-1.2); Calc. Creatinine Clearance 0 mL/min (70-130); Calcium 8.9 mg/dL (7.8-10.44); Carbon Dioxide 18 mmol/L (23-31); Chloride 103 mmol/L (98-107); Estimated GFR 35; Globulin 2.9 g/dL (2.4-3.5); Glucose 441 mg/dL (80-115); Protein, Total 6.6 g/dL (5.8-8.1); Sodium 135 mmol/L (136-145)
[2021-12-07] MEDS ORDERED: Aspirin Chewable 81 MG TAB ONE (00:51)
[2021-12-07] MEDS ORDERED: Acetaminophen 500 MG TAB ONE (00:51)
[2021-12-07 03:10] VITALS: BMI 28.4
[2021-12-07 04:21] LABS: Troponin I Less than 0.010 ng/mL (< 0.028)
[2021-12-07] MEDS ORDERED: Acetaminophen 325 MG TAB PO PRN (04:57)
[2021-12-07] MEDS ORDERED: Ondansetron PF 4 MG/2 ML Vial IVP PRN (04:57)
[2021-12-07] MEDS ORDERED: hydrALAZINE 20 MG/ML VIAL SLOW IVP PRN (04:57)
[2021-12-07] MEDS ORDERED: Ondansetron ODT 4 MG TAB PO PRN (04:57)
[2021-12-07] MEDS ORDERED: Acetaminophen 650 MG Suppository PR PRN (04:57)
[2021-12-07] MEDS ORDERED: Dextrose 50% Abboject 50 ML SYRINGE SLOW IVP PRN (05:20)
[2021-12-07] MEDS ORDERED: HumaLOG 300 UNITS/3 ML VIAL SC PRN (05:20)
[2021-12-07] MEDS ORDERED: Dextrose 5% in Water 1,000 ML IV PRN (05:20)
[2021-12-07] MEDS: HumaLOG 300 UNITS/3 ML VIAL SC PRN ×3 (07:24→16:22)
[2021-12-07 07:27] LABS: Troponin I Less than 0.010 ng/mL (< 0.028)
[2021-12-07 07:59] LABS: Anion Gap 16 mmol/L (10-20); BUN (Urea Nitrogen) 20 mg/dL (9.8-20.1); Calc. Creatinine Clearance 50 mL/min (70-130); Calcium 8.6 mg/dL (7.8-10.44); Carbon Dioxide 19 mmol/L (23-31); Chloride 105 mmol/L (98-107); Estimated GFR 40; Glucose 454 mg/dL (80-115); Potassium 3.8 mmol/L (3.5-5.1); Sodium 136 mmol/L (136-145)
[2021-12-07] MEDS ORDERED: ADENOSINE 60 MG/20 ML VIAL ONE (08:53)
[2021-12-07] MEDS ORDERED: Insulin Glargine 30 UNITS/0.3 ML VIAL SC SCH (09:00)
[2021-12-07] MEDS ORDERED: Aspirin Chewable 81 MG TAB PO SCH (09:00)
[2021-12-07] MEDS ORDERED: Non-Formulary Item 1 EACH (Levothyroxine Sodium [Levothyroxine] 25 MCG Capsule) PO SCH (09:00)
[2021-12-07] MEDS: DULoxetine 60 MG CAP PO SCH ×2 (10:43→21:21)
[2021-12-07] MEDS: Clopidogrel Bisulfate 75 MG TAB PO SCH (10:43)
[2021-12-07] MEDS: Aspirin 325 mg Enteric Coated Tablet PO SCH (10:43)
[2021-12-07] MEDS: Atorvastatin Calcium 40 MG TAB PO SCH (10:43)
[2021-12-07] MEDS: Empagliflozin 10 MG TAB PO SCH (10:44)
[2021-12-07] MEDS: Ezetimibe 10 MG TAB PO SCH (10:44)
[2021-12-07] MEDS: Spironolactone 25 MG TAB PO SCH ×2 (10:44→21:25)
[2021-12-07] MEDS: Enoxaparin Sodium 40 MG/0.4 ML SYRINGE SC SCH (14:11)
[2021-12-07] MEDS: Sodium Chloride 0.9% 1,000 ML IV SCH ×2 (14:11→16:15)
[2021-12-07] MEDS: Atenolol 25 MG TAB PO SCH (14:11)
[2021-12-07] MEDS: Insulin Glargine 30 UNITS/0.3 ML VIAL SC SCH (14:12)
[2021-12-07] MEDS ORDERED: rOPINIRole HCl 1 MG TAB PO SCH (21:00)
[2021-12-07] MEDS ORDERED: Ibuprofen 600 MG TAB PO SCH (21:00)
[2021-12-08] MEDS ORDERED: Acetaminophen/Codeine 30-300mg Tablet PO PRN (05:14)
[2021-12-08 05:22] LABS: #Basophils 0.1 thou/uL (0.0-0.2); #Eosinphils 0.4 thou/uL (0.0-0.7); #Lymphocytes 1.6 thou/uL (1.20-3.40); #Monocytes 0.5 thou/uL (0.11-0.59); #Neutrophils 2.8 thou/uL (1.40-6.50); %Basophils 1.3 % (0.0-1.0); %Eosinophils 8.4 % (0.0-10.0); %Lymphocytes 29.4 % (21.0-51.0); %Monocytes 9.2 % (0.0-10.0); %Neutrophils 51.6 % (42.0-75.0); Mean Corpuscular HGB CONC 31.9 g/dL (32.0-36.0); Mean Corpuscular Hemoglobin 27.4 pg (27.0-31.0); Mean Corpuscular Volume 86.1 fL (78.0-98.0); Mean Platelet Volume 7.1 fL (7.4-10.4); Platelet Count 272 thou/uL (130-400); RBC Distribution Width 14.7 % (11.5-14.5); Red Blood Cell (RBC) Count 4.03 mill/uL (4.20-5.40); White Blood Cell (WBC) Count 5.4 thou/uL (4.8-10.8)
[2021-12-08] MEDS: Sodium Chloride 0.9% 1,000 ML IV SCH (05:25)
[2021-12-08 05:51] LABS: Anion Gap 14 mmol/L (10-20); BUN (Urea Nitrogen) 18 mg/dL (9.8-20.1); Calc. Creatinine Clearance 60 mL/min (70-130); Calcium 8.9 mg/dL (7.8-10.44); Carbon Dioxide 19 mmol/L (23-31); Cardiac Risk 2.7 (Less than 4.5); Chloride 106 mmol/L (98-107); Cholesterol 96 mg/dl (< 200 Desired); Estimated GFR 50; Glucose 374 mg/dL (80-115); HDL Cholesterol 35 mg/dL (>60 Neg Risk); LDL Cholesterol, Calculated 29 mg/dL; Potassium 4.1 mmol/L (3.5-5.1); Sodium 135 mmol/L (136-145); Triglycerides 160 mg/dL (Less than 150)
[2021-12-08] MEDS ORDERED: Levothyroxine Sodium 25 MCG TAB PO SCH (06:00)
[2021-12-08] MEDS: HumaLOG 300 UNITS/3 ML VIAL SC PRN ×2 (06:39→12:48)
[2021-12-08] MEDS ORDERED: Iopamidol-370 76% 500 ML 1 ML ONE (09:19)
[2021-12-08] MEDS: Aspirin 325 mg Enteric Coated Tablet PO SCH (09:20)
[2021-12-08] MEDS: Empagliflozin 10 MG TAB PO SCH (09:21)
[2021-12-08] MEDS: DULoxetine 60 MG CAP PO SCH (09:21)
[2021-12-08] MEDS: Enoxaparin Sodium 40 MG/0.4 ML SYRINGE SC SCH (09:21)
[2021-12-08] MEDS: Clopidogrel Bisulfate 75 MG TAB PO SCH (09:21)
[2021-12-08] MEDS: Atorvastatin Calcium 40 MG TAB PO SCH (09:21)
[2021-12-08] MEDS: Ezetimibe 10 MG TAB PO SCH (09:22)
[2021-12-08] MEDS: Spironolactone 25 MG TAB PO SCH (09:25)
[2021-12-08] MEDS: Atenolol 25 MG TAB PO SCH (09:26)
[2021-12-08] MEDS: Insulin Glargine 30 UNITS/0.3 ML VIAL SC SCH (09:27)
[2021-12-08 09:35] VITALS: TEMP 98.1
[2021-12-08 12:27] VITALS: BP 97/51
== END 2021-12-08 13:51 | disposition home or self-care (01) | DRG 69 ==
LOC: ERS 23:47 → 2SW 12-07 02:09 → OBSVTOIN 12-07 17:05
PROVIDERS: ADMIT Student in an Organized Health Care Education/Training Program; ATTEND Internal Medicine
DX: G45.9 Transient cerebral ischemic attack, unspecified (principal); E87.1 Hypo-osmolality and hyponatremia; N17.9 Acute kidney failure, unspecified; R07.89 Other chest pain; I25.10 Atherosclerotic heart disease of native coronary artery without angina pectoris; E11.51 Type 2 diabetes mellitus with diabetic peripheral angiopathy without gangrene; E78.00 Pure hypercholesterolemia, unspecified; F31.9 Bipolar disorder, unspecified; G89.29 Other chronic pain; G43.909 Migraine, unspecified, not intractable, without status migrainosus; E11.621 Type 2 diabetes mellitus with foot ulcer; L97.509 Non-pressure chronic ulcer of other part of unspecified foot with unspecified severity; F41.9 Anxiety disorder, unspecified; E11.319 Type 2 diabetes mellitus with unspecified diabetic retinopathy without macular edema; N18.30 Chronic kidney disease, stage 3 unspecified; E78.5 Hyperlipidemia, unspecified; Z20.822 Contact with and (suspected) exposure to COVID-19; E11.22 Type 2 diabetes mellitus with diabetic chronic kidney disease; E03.9 Hypothyroidism, unspecified; K21.9 Gastro-esophageal reflux disease without esophagitis; I12.9 Hypertensive chronic kidney disease with stage 1 through stage 4 chronic kidney disease, or unspecified chronic kidney disease; Z88.2 Allergy status to sulfonamides; Z88.0 Allergy status to penicillin; Z88.8 Allergy status to other drugs, medicaments and biological substances; Z88.1 Allergy status to other antibiotic agents; Z79.899 Other long term (current) drug therapy; Z79.82 Long term (current) use of aspirin; Z79.4 Long term (current) use of insulin; Z98.890 Other specified postprocedural states; Z90.49 Acquired absence of other specified parts of digestive tract; Z90.710 Acquired absence of both cervix and uterus; Z95.1 Presence of aortocoronary bypass graft; Z91.040 Latex allergy status
CPT/HCPCS: 36415; 36416; 70450; 70551; 71045; 71275; 78452; 80048; 80053; 80061; 84443; 84484; 85025; 85379; 93005; 93017; 93306; 93880; 94760; A9500; G0378; J0153; J1815; J7050; U0003; U0005

== ENCOUNTER 2022-07-17 20:45 | Emergency (ER) | payer OTHER ==
[2022-07-17 21:32] LABS: #Basophils 0.1 thou/uL (0.0-0.2); #Eosinphils 0.4 thou/uL (0.0-0.7); #Lymphocytes 1.8 thou/uL (1.20-3.40); #Monocytes 0.5 thou/uL (0.11-0.59); #Neutrophils 4.6 thou/uL (1.40-6.50); %Basophils 1.3 % (0.0-1.0); %Eosinophils 4.9 % (0.0-10.0); %Lymphocytes 24.4 % (21.0-51.0); %Monocytes 6.5 % (0.0-10.0); %Neutrophils 62.9 % (42.0-75.0); Hemoglobin 12.2 g/dL (12.0-16.0); Mean Corpuscular HGB CONC 32.6 g/dL (32.0-36.0); Mean Corpuscular Hemoglobin 27.3 pg (27.0-31.0); Mean Corpuscular Volume 83.8 fl (78.0-98.0); Mean Platelet Volume 7.5 fL (7.4-10.4); Platelet Count 319 10x3/uL (130-400); RBC Distribution Width 14.7 % (11.5-14.5); Red Blood Cell (RBC) Count 4.47 mill/uL (4.20-5.40); White Blood Cell (WBC) Count 7.2 10x3/uL (4.8-10.8)
[2022-07-17 22:02] LABS: ALT (SGPT) 19 U/L (8-55); AST (SGOT) 19 U/L (5-34); Albumin 4.1 g/dL (3.4-4.8); Alkaline Phosphatase 73 U/L (40-110); Anion Gap 17 mmol/L (10-20); BUN (Urea Nitrogen) 17 mg/dL (9.8-20.1); Bilirubin, Total 0.2 mg/dL (0.2-1.2); Calc. Creatinine Clearance 0 mL/min (70-130); Calcium 9.4 mg/dL (7.8-10.44); Carbon Dioxide 19 mmol/L (23-31); Chloride 104 mmol/L (98-107); Estimated GFR 45; Globulin 2.7 g/dL (2.4-3.5); Glucose 255 mg/dL (80-115); Potassium 4.4 mmol/L (3.5-5.1); Protein, Total 6.8 g/dL (5.8-8.1); Sodium 136 mmol/L (136-145)
== END 2022-07-17 23:57 | disposition home or self-care (01) ==
LOC: ERS 20:45
DX: E11.65 Type 2 diabetes mellitus with hyperglycemia (principal); E86.0 Dehydration; R20.2 Paresthesia of skin; I25.10 Atherosclerotic heart disease of native coronary artery without angina pectoris; E11.9 Type 2 diabetes mellitus without complications; I10 Essential (primary) hypertension; E78.00 Pure hypercholesterolemia, unspecified; F17.290 Nicotine dependence, other tobacco product, uncomplicated
CPT/HCPCS: 70450; 80053; 84484; 85025; 87086; 93005; 96360

== ENCOUNTER 2022-07-29 02:08 | Inpatient (IN) | payer OTHER, MEDICAID ==
[2022-07-29 02:53] LABS: #Basophils 0.1 thou/uL (0.0-0.2); #Eosinphils 0.3 thou/uL (0.0-0.7); #Lymphocytes 1.7 thou/uL (1.20-3.40); #Monocytes 0.4 thou/uL (0.11-0.59); #Neutrophils 4.4 thou/uL (1.40-6.50); %Basophils 1.3 % (0.0-1.0); %Lymphocytes 23.9 % (21.0-51.0); %Monocytes 5.9 % (0.0-10.0); %Neutrophils 63.9 % (42.0-75.0); Hemoglobin 12.3 g/dL (12.0-16.0); Mean Corpuscular HGB CONC 33.1 g/dL (32.0-36.0); Mean Corpuscular Volume 81.4 fl (78.0-98.0); Mean Platelet Volume 7.5 fL (7.4-10.4); Platelet Count 268 10x3/uL (130-400); RBC Distribution Width 14.7 % (11.5-14.5); Red Blood Cell (RBC) Count 4.55 mill/uL (4.20-5.40); White Blood Cell (WBC) Count 6.9 10x3/uL (4.8-10.8)
[2022-07-29 03:14] LABS: Lipase 14 U/L (8-78); Magnesium 1.9 mg/dL (1.6-2.6)
[2022-07-29 03:16] LABS: ALT (SGPT) 18 U/L (8-55); AST (SGOT) 22 U/L (5-34); Acetaminophen Less than 10.0 mcg/mL (10.0-30.0); Albumin 3.9 g/dL (3.4-4.8); Alcohol Less than 10 mg/dL (Less than 10); Alkaline Phosphatase 78 U/L (40-110); Anion Gap 19 mmol/L (10-20); BUN (Urea Nitrogen) 21 mg/dL (9.8-20.1); Bilirubin, Total Less than 0.2 mg/dL (0.2-1.2); Calc. Creatinine Clearance 0 mL/min (70-130); Calcium 9.6 mg/dL (7.8-10.44); Carbon Dioxide 18 mmol/L (23-31); Chloride 102 mmol/L (98-107); Estimated GFR 54; Globulin 3.1 g/dL (2.4-3.5); Potassium 4.8 mmol/L (3.5-5.1); Salicylate Less than 8.0 mg/dL (15.0-30.0); Sodium 134 mmol/L (136-145)
[2022-07-29 03:20] LABS: Glucose 458 mg/dL (80-115)
[2022-07-29] MEDS ORDERED: Acetaminophen 325 MG TAB PO PRN (04:00)
[2022-07-29] MEDS ORDERED: Ondansetron PF 4 MG/2 ML Vial IVP PRN (04:00)
[2022-07-29] MEDS ORDERED: Ondansetron ODT 4 MG TAB SL PRN (04:00)
[2022-07-29] MEDS ORDERED: Dextrose 50% Abboject 50 ML SYRINGE SLOW IVP PRN (04:41)
[2022-07-29] MEDS ORDERED: Dextrose 5% in Water 1,000 ML IV PRN (04:41)
[2022-07-29] MEDS ORDERED: Insulin Glargine 30 UNITS/0.3 ML VIAL SC SCH ×2 (05:00→21:00)
[2022-07-29] MEDS ORDERED: HumaLOG 300 UNITS/3 ML VIAL ONE ×2 (05:09→09:39)
[2022-07-29] MEDS: HumaLOG 300 UNITS/3 ML VIAL SC PRN ×4 (05:23→16:47)
[2022-07-29] MEDS: Lactated Ringer's 1,000 ML IV SCH ×2 (05:24→12:18)
[2022-07-29 05:26] VITALS: BMI 31.6
[2022-07-29 06:16] LABS: Lactic Acid 2.2 mmol/L (0.5-2.2)
[2022-07-29 07:53] LABS: Amphetamine Not Detected (NotDetected); Barbiturates Screen Not Detected (NotDetected); Benzodiazepine Screen Not Detected (NotDetected); Cocaine Metabolite Screen Not Detected (NotDetected); Methadone Not Detected (NotDetected); Methamphetamine Not Detected (NotDetected); Opiate Screen Detected (NotDetected); Oxycodone Screen Not Detected (NotDetected); Phencyclidine (PCP) Not Detected (NotDetected); THC/Cannabinoid Screen Not Detected (NotDetected); Tricyclic Screen Not Detected (NotDetected)
[2022-07-29 12:18] VITALS: BP 139/67; TEMP 98.2
[2022-07-29] MEDS ORDERED: Spironolactone 25 MG TAB PO SCH (21:00)
[2022-07-29] MEDS ORDERED: Furosemide 40 MG TAB PO SCH (21:00)
[2022-07-30] MEDS ORDERED: Levothyroxine Sodium 25 MCG TAB PO SCH (06:00)
[2022-07-30] MEDS ORDERED: Potassium Chloride 10 MEQ TAB PO SCH (09:00)
[2022-07-30] MEDS ORDERED: Estrogens, Conjugated 0.3 MG TAB PO SCH (09:00)
[2022-07-30] MEDS ORDERED: Cholecalciferol 1,000 UNITS (25 MCG) TAB PO SCH (09:00)
[2022-07-30] MEDS ORDERED: Clopidogrel Bisulfate 75 MG TAB PO SCH (09:00)
[2022-07-30] MEDS ORDERED: Losartan 25 MG TAB PO SCH (09:00)
[2022-07-30] MEDS ORDERED: Insulin Glargine 30 UNITS/0.3 ML VIAL SC SCH (09:00)
[2022-07-30] MEDS ORDERED: Ezetimibe 10 MG TAB PO SCH (09:00)
[2022-07-30] MEDS ORDERED: Non-Formulary Item 1 EACH (Vortioxetine Hydrobromide [Trintellix] 10 MG Tablet) PO SCH (09:00)
[2022-07-30] MEDS ORDERED: Atorvastatin Calcium 40 MG TAB PO SCH (09:00)
[2022-07-30] MEDS ORDERED: Venlafaxine HCl XR 150 MG CAP PO SCH (09:00)
== END 2022-07-29 18:26 | disposition home or self-care (01) | DRG 918 ==
LOC: ERS 02:08 → ERHOLD 03:55
PROVIDERS: ADMIT Emergency Medicine; ATTEND Emergency Medicine
DX: T42.8X2A Poisoning by antiparkinsonism drugs and other central muscle-tone depressants, intentional self-harm, initial encounter (principal); I25.10 Atherosclerotic heart disease of native coronary artery without angina pectoris; I10 Essential (primary) hypertension; E11.9 Type 2 diabetes mellitus without complications; G43.909 Migraine, unspecified, not intractable, without status migrainosus; G89.29 Other chronic pain; R00.1 Bradycardia, unspecified; M54.9 Dorsalgia, unspecified; K21.9 Gastro-esophageal reflux disease without esophagitis; E78.00 Pure hypercholesterolemia, unspecified; F41.9 Anxiety disorder, unspecified; F32.A Depression, unspecified; Z90.49 Acquired absence of other specified parts of digestive tract; Z91.041 Radiographic dye allergy status; Z88.1 Allergy status to other antibiotic agents; Z91.040 Latex allergy status; Z88.8 Allergy status to other drugs, medicaments and biological substances; Z88.0 Allergy status to penicillin; Z88.2 Allergy status to sulfonamides; Z91.09 Other allergy status, other than to drugs and biological substances; Z79.899 Other long term (current) drug therapy; Z79.02 Long term (current) use of antithrombotics/antiplatelets; Z79.890 Hormone replacement therapy; Z79.4 Long term (current) use of insulin; Z95.1 Presence of aortocoronary bypass graft; Z82.49 Family history of ischemic heart disease and other diseases of the circulatory system
CPT/HCPCS: 36415; 36416; 80053; 80306; 80307; 83605; 83690; 83735; 85025; 93005; J1650; J1815; J7120

== ENCOUNTER 2023-08-26 22:50 | Emergency (ER) | payer OTHER, MEDICAID ==
[2023-08-27 02:21] LABS: #Basophils 0.11 10x3/uL (0.0-0.2); %Eosinophils 1.2 % (0.0-10.0); %Lymphocytes 18.9 % (21.0-51.0); %Monocytes 7.4 % (0.0-10.0); %Neutrophils 71.1 % (42.0-75.0); Hematocrit 43.3 % (36.0-47.0); Hemoglobin 14.3 g/dL (12.0-16.0); Mean Corpuscular Hemoglobin 28.7 pg (27.0-31.0); Mean Corpuscular Volume 86.8 fL (78.0-98.0); Mean Platelet Volume 9.8 fL (7.4-10.4); Platelet Count 293 10x3/uL (130-400); RBC Distribution Width 13.6 % (11.5-14.5); Red Blood Cell (RBC) Count 4.99 mill/uL (4.20-5.40)
[2023-08-27 02:23] LABS: Bacteria/HPF None Seen HPF (None Seen); Bilirubin Negative (Negative); Blood, Urine Negative (Negative); CAUTI Indications for Culture Pelvic or flank pain; Clarity Clear (Clear); Glucose, Urine (Dipstick) Greater than 1000 mg/dL (Negative); Ketone, Urine Negative (Negative); Leukocyte Negative Leu/uL (Negative); Nitrite Negative (Negative); Protein, Urine (Dipstick) Negative (Neg-Trace); RBC/HPF 0-3 HPF (0-3); Specific Gravity, Urine 1.034 (1.002-1.036); Squamous Epithelial 0-3 HPF (0-3); Urobilinogen Normal mg/dL (Less than 2)
[2023-08-27 02:25] LABS: Urine Culture Reflex No No
[2023-08-27] MEDS ORDERED: fentaNYL 50 mcg/mL 1 mL Vial ONE (02:25)
[2023-08-27 02:41] LABS: Troponin I Less than 0.010 ng/mL (< 0.028)
[2023-08-27 03:02] LABS: ALT (SGPT) 31 U/L (8-55); AST (SGOT) 28 U/L (5-34); Albumin 3.7 g/dL (3.4-4.8); Alkaline Phosphatase 108 U/L (40-110); Anion Gap 15 mmol/L (10-20); BUN (Urea Nitrogen) 34 mg/dL (9.8-20.1); Bilirubin, Total 0.4 mg/dL (0.2-1.2); Calc. Creatinine Clearance 0 mL/min (70-130); Calcium 9.8 mg/dL (7.8-10.44); Carbon Dioxide 22 mmol/L (23-31); Chloride 103 mmol/L (98-107); Estimated GFR 34; Globulin 3.2 g/dL (2.4-3.5); Glucose 539 mg/dL (80-115); Lipase 16 U/L (8-78); Potassium 4.2 mmol/L (3.5-5.1); Protein, Total 6.9 g/dL (5.8-8.1); Sodium 136 mmol/L (136-145)
[2023-08-27] MEDS ORDERED: Insulin Regular, Human 100 UNIT/ML 10 ML VIAL ONE (03:32)
== END 2023-08-27 03:50 | disposition home or self-care (01) ==
LOC: ERS 22:50
DX: R55 Syncope and collapse (principal); S20.212A Contusion of left front wall of thorax, initial encounter; E11.65 Type 2 diabetes mellitus with hyperglycemia; E11.9 Type 2 diabetes mellitus without complications; I10 Essential (primary) hypertension; F17.290 Nicotine dependence, other tobacco product, uncomplicated; Z79.4 Long term (current) use of insulin; W18.30XA Fall on same level, unspecified, initial encounter
CPT/HCPCS: 71045; 73564; 80053; 81001; 83690; 83880; 84484; 85025; 93005; 96374; 96375; 99285; J1815; J3010; 36415